=== PATIENT | female | born 1980 | race Caucasian/White ===

== ENCOUNTER 2016-04-03 16:28 | Emergency (ER) | payer SELFPAY ==
[~2016-04-03] VITALS: Ht 157.5 cm; Wt 123.4 kg
--- NOTE | 2016-04-03 20:02 | PHYS DOC ---
Past Medical History Past Medical History: Asthma, Seizure Additional Past Medical Histor: CARDIOGENIC SYNCOPE Past Surgical History: Additional Past Surgical Histo: L - EYE AND L-ELBOW Alcohol Use: None Drug Use: None Adult General Chief Complaint Chief Complaint: VAGINAL BLEEDING [facility] HPI Patient is a 35 year old female with history of asthma who presents today with vaginal bleeding. Patient states she started bleeding yesterday. She states this is 2 weeks earlier than her normal cycle. She states she had a normal cycle on February 11, 2016, then last month around the she had a 1 day episode of spotting. She states yesterday she started bleeding bright red blood with clots. She is concerned she could be having a miscarriage. She states she has history of mental issues and we should not tell her anything we should talk to the . Informed patient if she is suicidal she needs to be checked into a mental facility. Patient denies any suicide ideation right now. Patient states she has used 8 feminine pad since this morning. Review of Systems Review of Systems Constitutional: Denies fever or chills [] Eyes: Denies change in visual acuity, redness, or eye pain [] HENT: Denies nasal congestion or sore throat [] Respiratory: Denies cough or shortness of breath [] Cardiovascular: No additional information not addressed in HPI [] GI: Vaginal bleeding : Denies dysuria or hematuria [] Musculoskeletal: Denies back pain or joint pain [] Integument: Denies rash or skin lesions [] Neurologic: Denies headache, focal weakness or sensory changes [] Endocrine: Denies polyuria or polydipsia [] Current Medications Current Medications Current Medications Medications (Trade) Dose Ordered Sig/Rex Start Time Stop Time Status Last Admin Dose Admin Acetaminophen (Tylenol) 650 mg 1X ONCE 04/03/16 20:45 04/03/16 20:46 DC 04/03/16 20:45 650 MG Info (Do NOT chart on this entry -- for MONITORING) 1 each PRN DAILY PRN 04/03/16 21:45 04/05/16 21:44 Iohexol (Omnipaque 300 Mg/ml) 75 ml 1X ONCE 04/03/16 22:00 04/03/16 22:01 DC Allergies Allergies Allergies Coded Allergies Type Severity Reaction Last Updated Verified fentanyl Allergy Intermediate 03/12/16 Yes meperidine Allergy Intermediate 03/12/16 Yes morphine Allergy Intermediate 03/12/16 Yes promethazine Allergy Intermediate 03/12/16 Yes Physical Exam Physical Exam Constitutional: Well developed, well nourished, no acute distress, non-toxic appearance. [] HENT: Normocephalic, atraumatic, bilateral external ears normal, oropharynx moist, no oral exudates, nose normal. [] Eyes: PERRLA, EOMI, conjunctiva normal, no discharge. [] Neck: Normal range of motion, no tenderness, supple, no stridor. [] Cardiovascular:Heart rate regular rhythm, no murmur [] Lungs & Thorax: Bilateral breath sounds clear to auscultation [] Abdomen: Bowel sounds normal, soft, no tenderness, no masses, no pulsatile masses. [] Pelvic exam External pelvic = normal, cervix closed no CMT, no adnexal tenderness. Small amount of bright red blood noted in the vaginal vault consistent with menstrual bleeding Skin: Warm, dry, no erythema, no rash. [] Back: No tenderness, no CVA tenderness. [] Extremities: No tenderness, no cyanosis, no clubbing, ROM intact, no edema. [] Neurologic: Alert and oriented X 3, normal motor function, normal sensory function, no focal deficits noted. [] Psychologic: Affect normal, judgement normal, mood normal. [] Current Patient Data Vital Signs Vital Signs Date Time Temp Pulse Resp B/P Pulse Ox O2 Delivery O2 Flow Rate FiO2 04/03/16 21:04 74 103/56 96 Room Air 04/03/16 19:35 98.1 16 98.1 Lab Values Laboratory Tests Test 04/03/16 20:05 04/03/16 20:10 04/03/16 20:20 Urine Collection Type Unknown Urine Color Meliza Urine Clarity Cloudy Urine pH 6.0 Urine Specific [place] >=1.030 Urine Protein 30mg/dL (NEG-TRACE) Urine Glucose (UA) Negativemg/dL (NEG) Urine Ketones (Stick) 15mg/dL (NEG) Urine Blood Large (NEG) Urine Nitrite Negative (NEG) Urine Bilirubin Negative (NEG) Urine Urobilinogen Dipstick 0.2mg/dL (0.2 mg/dL) Urine Leukocyte Esterase Small (NEG) Urine RBC Tntc/HPF (0-2) Urine WBC Occ/HPF (0-4) Urine Squamous Epithelial Cells Mod/LPF Urine Bacteria Few/HPF (0-FEW) Urine Mucus Mod/LPF White Blood Count 12.0x10^3/uL (4.0-11.0) H Red Blood Count 4.23x10^6/uL (3.50-5.40) Hemoglobin 12.5g/dL (12.0-15.5) Hematocrit 38.2% (36.0-47.0) Mean Corpuscular Volume 90fL (79-100) Mean Corpuscular Hemoglobin 30pg (25-35) Mean Corpuscular Hemoglobin Concent 33g/dL (31-37) Red Cell Distribution Width 14.6% (11.5-14.5) H Platelet Count 300x10^3/uL (140-400) Neutrophils (%) (Auto) 54% (31-73) Lymphocytes (%) (Auto) 36% (24-48) Monocytes (%) (Auto) 7% (0-9) Eosinophils (%) (Auto) 2% (0-3) Basophils (%) (Auto) 1% (0-3) Neutrophils # (Auto) 6.5x10^3uL (1.8-7.7) Lymphocytes # (Auto) 4.4x10^3/uL (1.0-4.8) Monocytes # (Auto) 0.8x10^3/uL (0.0-1.1) Eosinophils # (Auto) 0.2x10^3/uL (0.0-0.7) Basophils # (Auto) 0.1x10^3/uL (0.0-0.2) Maternal Serum HCG Beta Subunit 1mIU/mL (0-6) POC Urine HCG, Qualitative Hcg negative (Negative) Laboratory Tests 04/03/16 20:10 Microbiology 04/03/16 Wet Prep - Final, Complete EKG EKG [] Radiology/Procedures Radiology/Procedures [] Course & Med Decision Making Course & Med Decision Making Pertinent Labs and Imaging studies reviewed. (See chart for details) Patient is in the ED with vaginal bleeding since yesterday, she states this is 2 weeks early and she is concerned she could be having a miscarriage. She had small amount of bleeding in the vaginal vault during pelvic exam. She is using very poor thin feminine pads which which do not collect much blood, encouraged patient to consider using larger size pad. Negative urine hCG, beta-hCG 1. Pelvic ultrasound is negative for any acute findings. WBC 12.0, hematocrit and hemoglobin are normal. Urine analysis is positive for small infection though there is a chance this urine is contaminated. I discharged her with Bactrim for 3 days. Informed patient she has dysfunctional uterine bleeding. Provided an [employer] for follow-up as soon as possible. Discharged with Ultram as needed for pain. Provided return precautions including the need to return to the ED if she starts soaking more than 1 feminine pad an hour. Her bleeding is very small in amount in the ED. Dragon Disclaimer Dragon Disclaimer This electronic medical record was generated, in whole or in part, using a voice recognition dictation system. Departure Departure Impression: Primary Impression: Dysfunctional uterine bleeding Additional Impression: Urinary tract infection Disposition: 01 HOME, SELF-CARE Condition: STABLE Referrals: NO PCP (PCP) AMRIT YOST Jr, MD Follow-up in one week Patient Instructions: Uterine Bleeding, Dysfunctional Additional Instructions: You were seen for dysfunctional uterine bleeding which can cause irregular menstrual cycles. Follow-up with the provided [employer] in the next 7 days. Ensure you complete your antibiotics for urinary tract infection. Take the prescribed medicines as needed for pain. Return to the ED if he starts soaking one LARGE feminine pad per hour. Scripts Tramadol Hcl/Acetaminophen (Ultracet Tablet)1 Each Tablet1 Tab PO Q6HRS #30 TAB Prov:BREEZY BARRAZA APRN 04/03/16 Sulfamethoxazole/Trimethoprim (Bactrim Ds Tablet)1 Each Tablet1 Tab PO BID #6 TAB Prov:BREEZY BARRAZA APRN 04/03/16 Problem Qualifiers Additional Impression: Urinary tract infection Urinary tract infection type: acute cystitis Hematuria presence: without hematuria Qualified Code: N30.00 - Acute cystitis without hematuria BREEZY BARRAZA APRN Apr 03, 2016 20:02
[2016-04-03 20:23] LABS: BILIRUBIN,URINE NEGATIVE (NEG); GLUCOSE,URINE NEGATIVE (NEG); NITRITE,URINE NEGATIVE (NEG); PROTEIN,URINE 30 mg/dL (NEG-TRACE); UROBILINOGEN,URINE 0.2 mg/dL (0.2 mg/dL)
[2016-04-03 20:23] LABS: BASO # 0.1 x10^3/uL (0.0-0.2); BASO % 1 % (0-3); EOS % 2 % (0-3); HEMATOCRIT 38.2 % (36.0-47.0); HEMOGLOBIN 12.5 g/dL (12.0-15.5); LYMPH # 4.4 x10^3/uL (1.0-4.8); LYMPH % 36 % (24-48); MEAN CORPUSCULAR HEMOGLOBIN 30 pg (25-35); MEAN CORPUSCULAR HGB CONC 33 g/dL (31-37); MEAN CORPUSCULAR VOLUME 90 fL (79-100); MONO % 7 % (0-9); NEUT % 54 % (31-73); PLATELET COUNT 300 x10^3/uL (140-400); RED BLOOD COUNT 4.23 x10^6/uL (3.50-5.40); RED CELL DISTRIBUTION WIDTH 14.6 % (11.5-14.5)
[2016-04-03 20:34] LABS: BACTERIA,URINE FEW /HPF (0-FEW); RBC,URINE TNTC /HPF (0-2); SQUAMOUS EPITHELIAL CELL,UR MOD /LPF; WBC,URINE OCC /HPF (0-4)
[2016-04-03] MEDS ORDERED: ACETAMINOPHEN 325 MG TABLET. PO ONE (20:45)
[2016-04-03] MEDS ORDERED: CONTRAST GIVEN MC PRN (21:45)
[2016-04-03] MEDS ORDERED: IOHEXOL 300 MG/ML 75 ML VIAL IV ONE (22:00)
--- NOTE | 2016-04-03 22:26 | RAD ---
PROCEDURE Pelvic ultrasound with endovaginal imaging. HISTORY Pelvic pain and vaginal bleeding for 2 days. TECHNIQUE Transabdominal imaging was performed for initial evaluation of the pelvis. Endovaginal imaging was performed for optimal characterization of the endometrium. COMPARISON None. FINDINGS Transabdominal imaging: Examination is technically difficult secondary to patient body habitus. Uterus measures 10.4 centimeters in length. Endometrium is not well seen. No gross uterine masses are identified. Left ovary measures 2.5 x 2.4 x 2.4 centimeters and is unremarkable. Right ovary measures 2.6 x 2.1 x 2.3 centimeters and is unremarkable. No gross adnexal masses are seen. Endovaginal imaging: Uterus measures 9.8 centimeters in length. Endometrial thickness is 4 millimeters, within normal limits. Small nabothian cysts are seen. Left ovary measures 1.8 x 2.0 x 2.5 centimeters and is unremarkable. Right ovary measures 3.2 x 2.4 x 2.4 centimeters and is unremarkable. Both ovaries demonstrate normal vascular flow upon Doppler interrogation and are without evidence of torsion. No masses seen. IMPRESSION Unremarkable pelvic ultrasound. Electronically signed by: Vasu Cortés MD (Apr 03, 2016 22:25:29)
[2016-04-03 22:34] VITALS: BP 116/62
[2016-04-03] MEDS ORDERED: TRAM1TAB49 PO (23:23)
[2016-04-03] MEDS ORDERED: SULF1TAB24 PO (23:23)
== END 2016-04-04 00:06 | disposition home or self-care (01) ==
LOC: ER 16:28
DX: N93.8 Other specified abnormal uterine and vaginal bleeding (principal); N30.00 Acute cystitis without hematuria; J45.909 Unspecified asthma, uncomplicated; Z88.5 Allergy status to narcotic agent; Z88.8 Allergy status to other drugs, medicaments and biological substances
CPT/HCPCS: 36415; 76830; 76856; 81001; 81025; 84702; 85027; 87491; 87591; 99285; Q0111

== ENCOUNTER 2016-12-07 19:34 | Emergency (ER) | payer SELFPAY ==
[~2016-12-07] VITALS: Ht 157.5 cm; Wt 123.4 kg
[~2016-12-07 19:34] MED LIST: SULF1TAB24 PO; TRAM1TAB56 PO
[2016-12-07] MEDS ORDERED: IPRATRPIUM/ALBUTEROL 0.5/2.5MG 3 ML NEBU. NEB ONE (20:00)
[2016-12-07] MEDS ORDERED: ASPIRIN 325 MG TABLET PO ONE (20:00)
[2016-12-07 20:12] LABS: BASO # 0.1 x10^3/uL (0.0-0.2); BASO % 1 % (0-3); EOS % 2 % (0-3); HEMATOCRIT 38.9 % (36.0-47.0); LYMPH # 2.4 x10^3/uL (1.0-4.8); LYMPH % 29 % (24-48); MEAN CORPUSCULAR HEMOGLOBIN 29 pg (25-35); MEAN CORPUSCULAR HGB CONC 34 g/dL (31-37); MEAN CORPUSCULAR VOLUME 87 fL (79-100); MONO % 7 % (0-9); NEUT % 61 % (31-73); PLATELET COUNT 316 x10^3/uL (140-400); RED CELL DISTRIBUTION WIDTH 14.2 % (11.5-14.5); WHITE BLOOD COUNT 8.4 x10^3/uL (4.0-11.0)
[2016-12-07 20:25] LABS: CALCIUM 8.7 mg/dL (8.5-10.1); GFR 62.7; POTASSIUM 3.5 mmol/L (3.5-5.1)
[2016-12-07 20:30] LABS: ALBUMIN 3.1 g/dL (3.4-5.0); ALBUMIN/GLOBULIN RATIO 0.7 (1.0-1.7); MAGNESIUM 2.3 mg/dL (1.8-2.4); TOTAL BILIRUBIN 0.2 mg/dL (0.2-1.0); TOTAL PROTEIN 7.5 g/dL (6.4-8.2)
[2016-12-07] MEDS ORDERED: IOHEXOL 300 MG/ML 75 ML VIAL IV ONE (20:30)
[2016-12-07 20:40] VITALS: BP 138/65
[2016-12-07] MEDS ORDERED: CONTRAST GIVEN MC PRN (20:45)
--- NOTE | 2016-12-07 20:59 | PHYS DOC ---
Past Medical History Past Medical History: Anxiety, Asthma, Depression, Seizure, Other Additional Past Medical Histor: CARDIOGENIC SYNCOPE; PTSD Past Surgical History: , Other Additional Past Surgical Histo: L - EYE AND L-ELBOW; mass removal around THYROID 04/2016 Alcohol Use: None Drug Use: None Adult General Chief Complaint Chief Complaint: CHEST PAIN HPI HPI Patient is a 36 year old female who presents with cough & syncope. The patient wants home or she reports that she has been experiencing left-sided chest pain since yesterday, experienced onset of cough and subsequently had syncopal episode. Unknown how long she was unconscious. She has history of seizure but does not believe she experienced seizure, no tongue biting, no headache or sleepiness, no bowel or bladder incontinence. She has history of asthma and has been having cough and wheezing. She states she could not use her inhaler because she gave to her father. She states chest pain has been constant , is nonradiating. No associated nausea or diaphoresis. Denies fevers or chills or lower extremity pain or swelling. She has been having syncopal episodes approximately every 2-3 months and has been diagnosed with neurocardiogenic syncope. She is taking metoprolol. She was actually admitted to [facility] yesterday for similar symptoms. Evaluated by Dr. Chang of cardiology who suggested she could be evaluated as an outpatient for permanent pacemaker placement. She was discharged home after negative cardiac evaluation. Review of Systems Review of Systems Constitutional: Denies fever or chills Eyes: Denies change in visual acuity HENT: Denies nasal congestion or sore throat Respiratory: Reports cough and shortness of breath Cardiovascular: Reports chest pain, denies edema GI: Denies abdominal pain, nausea, vomiting Musculoskeletal: Denies back pain or joint pain Integument: Denies rash or skin lesions Neurologic: Denies headache, focal weakness or sensory changes Current Medications Current Medications Current Medications Medications (Trade) Dose Ordered Sig/Rex Start Time Stop Time Status Last Admin Dose Admin Albuterol/ Ipratropium (Duoneb) 3 ml 1X ONCE 12/07/16 20:00 12/07/16 20:09 DC 12/07/16 21:10 3 ML Aspirin (Pancho Aspirin) 325 mg 1X ONCE 12/07/16 20:00 12/07/16 20:09 DC Info (Do NOT chart on this entry -- for MONITORING) 1 each PRN DAILY PRN 10/21/17 20:45 12/09/16 20:44 Iohexol (Omnipaque 300 Mg/ml) 75 ml 1X ONCE 12/07/16 20:30 12/07/16 20:31 DC 12/07/16 20:59 75 ML Allergies Allergies Allergies Coded Allergies Type Severity Reaction Last Updated Verified fentanyl Allergy Intermediate 03/12/16 Yes meperidine Allergy Intermediate 03/12/16 Yes morphine Allergy Intermediate 03/12/16 Yes promethazine Allergy Intermediate 03/12/16 Yes Physical Exam Physical Exam Constitutional: Obese, no acute distress, non-toxic appearance. HENT: Normocephalic, atraumatic, bilateral external ears normal, oropharynx moist, nose normal. Eyes: conjunctiva normal, no discharge. Neck: supple, no stridor. Cardiovascular: RRR, no murmurs, no edema. Lungs & Thorax: LCTAB, no wheezing, no respiratory distress. Reproducible tenderness with palpation over left anterior chest wall Abdomen: soft, nontender, nondistended. Skin: Warm, dry, no erythema, no rash. Back: No tenderness. Extremities: No tenderness, no edema. No calf tenderness or swelling, distal pulses palpable bilaterally to lower extremities Neurologic: Alert and oriented X 3, cranial nerves II through XII grossly intact , symmetric strength and sensation to upper and lower extremities, no focal deficits noted. Psychologic: Affect normal, judgement normal, mood normal. Current Patient Data Vital Signs Vital Signs Date Time Temp Pulse Resp B/P (MAP) Pulse Ox O2 Delivery O2 Flow Rate FiO2 12/07/16 21:07 97 Room Air 12/07/16 19:49 99.0 75 20 116/62 (80) 99.0 Lab Values Laboratory Tests Test 12/07/16 19:45 White Blood Count 8.4 x10^3/uL (4.0-11.0) Red Blood Count 4.50 x10^6/uL (3.50-5.40) Hemoglobin 13.0 g/dL (12.0-15.5) Hematocrit 38.9 % (36.0-47.0) Mean Corpuscular Volume 87 fL (79-100) Mean Corpuscular Hemoglobin 29 pg (25-35) Mean Corpuscular Hemoglobin Concent 34 g/dL (31-37) Red Cell Distribution Width 14.2 % (11.5-14.5) Platelet Count 316 x10^3/uL (140-400) Neutrophils (%) (Auto) 61 % (31-73) Lymphocytes (%) (Auto) 29 % (24-48) Monocytes (%) (Auto) 7 % (0-9) Eosinophils (%) (Auto) 2 % (0-3) Basophils (%) (Auto) 1 % (0-3) Neutrophils # (Auto) 5.2 x10^3uL (1.8-7.7) Lymphocytes # (Auto) 2.4 x10^3/uL (1.0-4.8) Monocytes # (Auto) 0.6 x10^3/uL (0.0-1.1) Eosinophils # (Auto) 0.2 x10^3/uL (0.0-0.7) Basophils # (Auto) 0.1 x10^3/uL (0.0-0.2) Sodium Level 140 mmol/L (136-145) Potassium Level 3.5 mmol/L (3.5-5.1) Chloride Level 102 mmol/L (98-107) Carbon Dioxide Level 29 mmol/L (21-32) Anion Gap 9 (6-14) Blood Urea Nitrogen 15 mg/dL (7-20) Creatinine 1.0 mg/dL (0.6-1.0) Estimated GFR (Cockcroft-Gault) 62.7 BUN/Creatinine Ratio 15 (6-20) Glucose Level 99 mg/dL (70-99) Calcium Level 8.7 mg/dL (8.5-10.1) Magnesium Level 2.3 mg/dL (1.8-2.4) Total Bilirubin 0.2 mg/dL (0.2-1.0) Aspartate Amino Transferase (AST) 18 U/L (15-37) Alanine Aminotransferase (ALT) 25 U/L (14-59) Alkaline Phosphatase 65 U/L (46-116) Troponin I Quantitative < 0.017 ng/mL (0.000-0.055) GL-Edc-N-Type Natriuretic Peptide 35 pg/mL (0-124) Total Protein 7.5 g/dL (6.4-8.2) Albumin 3.1 g/dL (3.4-5.0) L Albumin/Globulin Ratio 0.7 (1.0-1.7) L Laboratory Tests 12/07/16 19:45 Laboratory Tests 12/07/16 19:45 EKG EKG Interpreted by me: 2003: Normal sinus rhythm rate 79, no acute ST or T wave changes, normal intervals, no ectopy.[] Radiology/Procedures Radiology/Procedures PROCEDURE: CT ANGIOGRAPHY CHEST CTA chest with contrast Indication: chest pain; elevated d-dimer; Omni 300, 75ml . Comparison: No comparison is available. Technique: After bolus of intravenous contrast, CT imaging was performed of the chest. MIP reconstructions were obtained. Exposure: One or more of the following individualized dose reduction techniques were utilized for this examination: 1. Automated exposure control 2. Adjustment of the mA and/or kV according to patient size 3. Use of iterative reconstruction technique. Findings: Detail is limited due to artifact, produced by body habitus. Pulmonary arteries:No evidence of pulmonary embolism. Thoracic aorta: No evidence of an aneurysm or dissection. Great vessel origins:Patent Thyroid gland:Visualized aspect is unremarkable. Lymph nodes:No significant enlargement Heart: No significant pericadial effusion. Pleural spaces: No significant effusion Lungs: Small noncalcified pulmonary nodule in the anterior right lower lung measures 4 mm, image 75 on series 3. There is some mosaic attenuation in the lungs, as can be seen with small airway disease. No dense airspace consolidation identified. Trachea and central airways: Patent Bones: No destructive process Upper abdomen: Slices were obtained through the upper abdomen, but are of limited usefulness due to technique. Spleen borderline enlarged, 12.8 cm. Impression: 1. Negative for pulmonary embolism. 2. Small incidental noncalcified right pulmonary nodule, consider follow-up CT chest in 12 months if patient is at high risk, as per Fleischner Society criteria. 3. Borderline splenomegaly. Electronically signed by: Vasu Grant MD (12/07/2016 9:13 PM) [facility] DICTATED and SIGNED BY: VASU GRANT MD DATE: 12/07/16 2100[] Course & Med Decision Making Course & Med Decision Making Pertinent Labs and Imaging studies reviewed. (See chart for details) Patient presents with chest pain having experienced syncopal episode. I did review records from previous hospital admission last night at [facility]. She was given aspirin by EMS. Administered DuoNeb breathing treatment here. No significant wheezing on exam, no indication for prednisone. Obtained labs, EKG. Will obtain CT angiogram of the chest is d-dimer was elevated yesterday and I do not see that further evaluation was performed to evaluate for pulmonary embolism. Discussed with Dr. Chang who had seen the patient during that hospitalization; recommends no need for admission or further cardiac evaluation at this time. He had already recommended that she follow-up in the clinic and at that time they can discuss elective pacemaker placement if she remains symptomatic. He did reiterate that she is not to drive. CT angiogram negative for PE. Discussed results with the patient. Recommend rest, hydration, will provide refill of inhaler. Take Tylenol or ibuprofen for chest pain. Follow-up in the cardiology clinic for further evaluation. Return to the emergency department for severe chest pain or shortness of breath, focal neurologic deficit, any otherwise worsening condition. Discharged home in stable condition. Dragon Disclaimer Dragon Disclaimer This electronic medical record was generated, in whole or in part, using a voice recognition dictation system. Departure Departure Impression: Primary Impression: Syncope Disposition: 01 HOME, SELF-CARE Condition: STABLE Referrals: ASHLEY NELSON (PCP) LAKIA CHANG MD Patient Instructions: Syncope, [id number] Additional Instructions: You were seen in the emergency department today for fainting & cough. Your tests here did not show a serious cause of symptoms. Please rest, drink fluids , take tylenol or ibuprofen for pain, use inhaler for asthma symptoms. Follow up as scheduled in cardiology clinic. You are not to drive a car because of fainting. Come back for severe chest pain or shortness of breath, numbness or weakness in arms or legs, any otherwise worsening condition. Scripts Albuterol Sulfate (PROAIR HFA INHALER) 8.5 Gm Hfa.aer.ad 1 PUFF INH PRN Q6HRS Y for SHORTNESS OF BREATH, #1 INHALER 0 Refills Prov: IRENE TOMLIN MD 12/07/16 IRENE TOMLIN MD Dec 07, 2016 20:59
--- NOTE | 2016-12-07 21:17 | RAD ---
CTA chest with contrast Indication: chest pain; elevated d-dimer; Omni 300, 75ml . Comparison: No comparison is available. Technique: After bolus of intravenous contrast, CT imaging was performed of the chest. MIP reconstructions were obtained. Exposure: One or more of the following individualized dose reduction techniques were utilized for this examination: 1. Automated exposure control 2. Adjustment of the mA and/or kV according to patient size 3. Use of iterative reconstruction technique. Findings: Detail is limited due to artifact, produced by body habitus. Pulmonary arteries:No evidence of pulmonary embolism. Thoracic aorta: No evidence of an aneurysm or dissection. Great vessel origins:Patent Thyroid gland:Visualized aspect is unremarkable. Lymph nodes:No significant enlargement Heart: No significant pericadial effusion. Pleural spaces: No significant effusion Lungs: Small noncalcified pulmonary nodule in the anterior right lower lung measures 4 mm, image 75 on series 3. There is some mosaic attenuation in the lungs, as can be seen with small airway disease. No dense airspace consolidation identified. Trachea and central airways: Patent Bones: No destructive process Upper abdomen: Slices were obtained through the upper abdomen, but are of limited usefulness due to technique. Spleen borderline enlarged, 12.8 cm. Impression: 1. Negative for pulmonary embolism. 2. Small incidental noncalcified right pulmonary nodule, consider follow-up CT chest in 12 months if patient is at high risk, as per Fleischner Society criteria. 3. Borderline splenomegaly. Electronically signed by: Vasu Grant MD (12/07/2016 9:13 PM) [facility]
[2016-12-07] MEDS ORDERED: PROAIR HFA8.5 GM INH (21:28)
--- NOTE | 2016-12-08 12:10 | EKG ---
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
== END 2016-12-07 21:58 | disposition home or self-care (01) ==
LOC: ER 19:34
DX: R55 Syncope and collapse (principal); R06.02 Shortness of breath; R05 Cough; R06.2 Wheezing; R07.89 Other chest pain; J45.909 Unspecified asthma, uncomplicated; F32.9 Major depressive disorder, single episode, unspecified; F43.10 Post-traumatic stress disorder, unspecified; F41.9 Anxiety disorder, unspecified; Z88.4 Allergy status to anesthetic agent; Z88.5 Allergy status to narcotic agent; Z88.8 Allergy status to other drugs, medicaments and biological substances; Z79.899 Other long term (current) drug therapy
CPT/HCPCS: 36415; 71275; 80053; 83735; 83880; 84484; 85025; 93005; 94250; 94640; 99285; J7620; Q9967

== ENCOUNTER 2017-01-06 06:34 | Observation (INO) | payer BC ==
[~2017-01-06] VITALS: Ht 158.8 cm; Wt 132.6 kg
[2017-01-06] VITALS (13 sets, daily range): BP systolic 97–134; BP diastolic 49–69
[~2017-01-06 06:34] MED LIST changes: +PROAIR HFA8.5 GM INH
[2017-01-06] MEDS ORDERED: BUDE10.2 IH (06:56)
[2017-01-06] MEDS ORDERED: LEVE500T56 PO (06:56)
[2017-01-06] MEDS ORDERED: FLUO40CA2 PO (06:56)
[2017-01-06] MEDS ORDERED: DIVA500T2 PO (06:56)
[2017-01-06] MEDS ORDERED: BACITRACIN 50,000 UNIT in IV NORMAL SALINE 250ML 250 ML IRR ONE (07:00)
[2017-01-06 07:04] LABS: HEMATOCRIT 41.6 % (36.0-47.0); HEMOGLOBIN 13.5 g/dL (12.0-15.5); RED BLOOD COUNT 4.85 x10^6/uL (3.50-5.40); RED CELL DISTRIBUTION WIDTH 14.5 % (11.5-14.5); WHITE BLOOD COUNT 9.5 x10^3/uL (4.0-11.0)
[2017-01-06] MEDS ORDERED: IOHEXOL 300 MG/ML 100ML VIAL. ONE (07:17)
[2017-01-06] MEDS ORDERED: LIDOCAINE 2% 20 ML VIAL. ONE (07:18)
[2017-01-06] MEDS ORDERED: HEPARIN for ARTERIAL LINE 0 ML ONE (07:18)
[2017-01-06 07:19] LABS: CALCIUM 8.8 mg/dL (8.5-10.1); CREATININE 0.9 mg/dL (0.6-1.0); GFR 70.8; POTASSIUM 3.4 mmol/L (3.5-5.1)
[2017-01-06] MEDS ORDERED: LIDOCAINE 2%/EPI 1:100,000 20 ML VIAL. ONE (07:23)
[2017-01-06 07:32] LABS: PROTHROMBIN TIME PATIENT 12.5 SEC (11.7-14.0)
[2017-01-06] MEDS ORDERED: IV RINGERS,LACTATED 1000ML 1,000 ML IV SCH (07:50)
[2017-01-06] MEDS ORDERED: MIDAZOLAM HCL/PF 2 MG/2 ML VIAL. ONE ×2 (08:04→08:51)
[2017-01-06] MEDS ORDERED: PROPOFOL 60 ML IV ONE (08:04)
[2017-01-06] MEDS ORDERED: LIDOCAINE 2% PF Vial for OR 5 ML VIAL. ONE (08:04)
[2017-01-06] MEDS ORDERED: LIDOCAINE 2%/EPI 1:100,000 20 ML VIAL. IJ ONE (08:30)
--- NOTE | 2017-01-06 09:28 | PDOC ---
MODERATE SEDATION ASSESSMENT RISKS/ALTERNATIVES Risks/Alternatives Risks and alternatives of this type of sedation and procedure discussed with: RISK/ALTERNATIVES: Patient H & P ON CHART H & P H & P on chart and reviewed for co-morbid conditions and appropriate labs. H&P ON CHART: Yes STATUS PREG STATUS ASSESSED: N/A MEDS/ALLERGIES REVIEWED Meds/Allergies Reviewed Medications and Allergies including time and route of recently administered narcotics and sedatives. MEDS/ALLERGIES REVIEWED: Yes ASA RATING ASA RATING: II AIRWAY ASSESSMENT Airway Assessment Airway patency, oral function limitations, presence of caps, crowns, dentures, partials, and ability to extend neck assessed. AIRWAY ASSESSMENT: Yes MALLAMPATI SCORE MALLAMPATI SCORE: II PRE-SEDATION ASSESSMENT PRE-SEDATION ASSESSMENT: Yes LAKIA CHANG MD Jan 06, 2017 09:28
[2017-01-06] MEDS ORDERED: NO ANTICOAGULANT THERAPY. MC PRN (09:30)
--- NOTE | 2017-01-06 09:57 | CARD ---
APPROVED REPORT PROCEDURES Successful implantation of Biotronik dual-chamber permanent pacemaker INDICATIONS Recurrent syncope of neurocardiogenic etiology PROCEDURE After explaining the risks, benefits, and alternative options, informed consent was obtained from the patient. The patient was brought to the cardiac catheterization lab and the left chest and shoulder were prepp ed and draped in a sterile manner. 36 mL of 2% lidocaine was infiltrated into the skin and subcutaneous tissues for local anesthesia. An incision was made over the left infraclavicular fossa and using blunt dissection and cautery a pocke t was created. Venous access was obtained in the left subclavian vein and 8 and 6 Palestinian sheath were inserted. A Biotronik bipolar active fixation right ventricular lead model Solia, serial #[id number] was advanced under fluoroscopy guidance and the tip was positioned in the right ventricular apex. Subsequently, a Biotronik bipolar active fixation right atrial lead model Solia serial #[id number] was positioned in t he right atrial appendage the leads were secured into place and attached to a Biotronik dual-chamber permanent pacemaker generator model Eluna 8-DR-T Pro MRI, serial #[id number]. The generator was placed in the pocket was subsequently closed in 3 layers. Hemostasis was secured.. The right ventricular lead showed a sensing amplitude of 9.1 mV, impedance of 578 ohms and a threshol d of 1 V. the right atrial lead showed a sensing amplitude of 2.5 mV, impedance of 543 ohms and a thr eshold of 1.1 V. Patient tolerated the procedure well. There were no immediate complications. CONCLUSION Successful implantation of Biotronik dual-chamber permanent pacemaker for recurrent neurocardiogenic syncope.
--- NOTE | 2017-01-06 10:00 | RAD ---
Indication: Pacemaker placement. Time of exam 0951 hours. No prior studies are available for comparison. The heart is enlarged. A dual-lead left subclavian cardiac pacemaker has been placed. Leads appear to be in appropriate position. No pneumothorax is identified. The lungs are clear. Impression: Pacemaker placement. No complicating features are detected.
[2017-01-06] MEDS ORDERED: POTASSIUM CHLORIDE 20 MEQ TABLET.ER. PO ONE (10:45)
[2017-01-06] MEDS: DIVALPROEX DELAYED RELEASE 500 MG TABLET.DR. PO SCH ×2 (11:39→20:47)
[2017-01-06] MEDS: FLUoxetine HCL 20 MG CAPSULE PO SCH (11:40)
[2017-01-06] MEDS: levETIRAcetam 500 MG TABLET PO SCH ×2 (11:40→20:47)
[2017-01-06] MEDS ORDERED: ACETAMINOPHEN 325 MG TABLET. PO PRN (12:00)
[2017-01-06] MEDS ORDERED: ONDANSETRON PF 4 MG/2 ML VIAL. IV PRN (12:00)
--- NOTE | 2017-01-06 12:05 | EKG ---
[facility] [address] [place] [address] Test Date: 2017-01-06 Test Time: 12:00:57 Pat Name: ROBIN VARGAS Department: Room: 260 1 Gender: F Insole Rasper: AT : 1980 Requested By: LAKIA CHANG Order Number: [id number] Reading MD: Son Alex MD Measurements Intervals [place] Rate: 87 P: 59 [place]: 202 QRS: 16 QRSD: 82 T: 17 QT: 362 QTc: 436 Interpretive Statements POSSIBLE A-PACED RHYTHM NON-SPECIFIC ST/T CHANGES Electronically Signed On 01-14-2017 13:27:09 MOLECULAR BIOLOGY SCIENTIST by Son Alex MD
[2017-01-06] MEDS ORDERED: NON FORMULARY ITEM (Albuterol Sulfate (Proair Hfa Inhaler) 1 PUFF) INH PRN (12:45)
[2017-01-06] MEDS ORDERED: PROAIR HFA8.5 GM INH (12:45)
[2017-01-06] MEDS ORDERED: ALBUTEROL SULFATE 2.5 MG/3 ML NEBU. NEB PRN (13:00)
[2017-01-06] MEDS: ALBUTEROL SULFATE 2.5 MG/3 ML NEBU. NEB SCH ×2 (16:01→19:48)
[2017-01-06] MEDS ORDERED: HYDROcodone/APAP 5/325MG 1 TAB TABLET PO PRN (19:00)
[2017-01-06] MEDS: BUDESONIDE 0.5 MG/2 ML NEBU. NEB SCH (19:48)
[2017-01-06] MEDS: HYDROcodone/APAP 5/325MG 1 TAB TABLET PO PRN (19:58)
[2017-01-06] MEDS ORDERED: NON FORMULARY ITEM (Budesonide/Formoterol Fumarate (Symbicort 160-4.5 Mcg Inhaler) 1 PUFF) IH SCH (21:00)
[2017-01-07] VITALS (12 sets, daily range): BP systolic 95–132; BP diastolic 48–77
[2017-01-07] MEDS: HYDROcodone/APAP 5/325MG 1 TAB TABLET PO PRN ×4 (00:57→21:12)
[2017-01-07] MEDS: BUDESONIDE 0.5 MG/2 ML NEBU. NEB SCH ×2 (07:22→19:29)
[2017-01-07] MEDS: ALBUTEROL SULFATE 2.5 MG/3 ML NEBU. NEB SCH ×4 (08:00→19:29)
[2017-01-07] MEDS: levETIRAcetam 500 MG TABLET PO SCH ×2 (08:47→21:05)
[2017-01-07] MEDS: FLUoxetine HCL 20 MG CAPSULE PO SCH (08:47)
[2017-01-07] MEDS: DIVALPROEX DELAYED RELEASE 500 MG TABLET.DR. PO SCH ×2 (08:47→21:05)
--- NOTE | 2017-01-07 09:04 | RAD ---
EXAM: Chest 2 views. HISTORY: Pacemaker placement. COMPARISON: 01/06/2017. FINDINGS: Frontal and lateral views of the chest are obtained. A left-sided pacemaker has its leads in the right atrium and right ventricle. The right atrial lead appears differently positioned than on the prior study. There are no confluent infiltrates. There is no pneumothorax or pleural effusion. The heart is not enlarged. IMPRESSION: 1. The right atrial lead is differently positioned than on the prior study.
--- NOTE | 2017-01-07 11:39 | PDOC ---
Provider Note Provider Note 01/07/2017 Pt is doing well. Incision site is intact and no erythema. Neurovascular status to LUE intact. No complications. Per repeat interrogation RV lead readings is not optimal indicating needing repositioning. Discussed with pt and agreeable to proceed. RAAD JORGE APRN Jan 07, 2017 11:39
[2017-01-07] MEDS ORDERED: LIDOCAINE 2%/EPI 1:100,000 20 ML VIAL. ONE (11:58)
[2017-01-07] MEDS ORDERED: BACITRACIN 50,000 UNIT in IV NORMAL SALINE 250ML 250 ML IRR ONE (13:30)
[2017-01-07] MEDS ORDERED: ceFAZolin SODIUM 3 GM in IV DEXTROSE 5% 100 ML IV ONE (13:30)
[2017-01-07] MEDS ORDERED: MIDAZOLAM HCL/PF 5 MG/5 ML VIAL. ONE (13:33)
[2017-01-07] MEDS ORDERED: diphenhydrAMINE 50 MG/ML VIAL ONE ×2 (13:33→14:04)
[2017-01-07] MEDS ORDERED: LIDOCAINE 2%/EPI 1:100,000 20 ML VIAL. IJ ONE (14:30)
[2017-01-07] MEDS ORDERED: diphenhydrAMINE 50 MG/ML VIAL IVP ONE (14:30)
[2017-01-07] MEDS ORDERED: MIDAZOLAM HCL/PF 5 MG/5 ML VIAL. IV ONE (14:30)
--- NOTE | 2017-01-07 15:03 | CARD ---
APPROVED REPORT Procedure(s) performed: Successful Biotronik dual-chamber permanent pacemaker right ventricular lead revision 45 moderate sedation INDICATION The indication(s) include : Neurocardiogenic syncope s/p permanent pacemaker implantation with pacema ker malfunction secondary to right ventricular lead dislodgment. PROCEDURE NARRATIVE After explaining the risks, benefits and alternative options, informed consent was obtained from elida ent. Patient was brought to the cardiac Pony Ride Operator and her left chest and shoulder were prepped and renard ped in the usual fashion. 30 mL of 2% lidocaine was infiltrated into the skin and subcutaneous tissue s for local anesthesia. An incision was made over the previous scar and using blunt dissection the po cket was opened, the previous replaced generator removed from the pocket. The right ventricular lead was detached from the generator, repositioned on the septum under fluoroscopy guidance and reattached to the generator. This was placed in the pocket that was subsequently closed in 3 layers. The right ventricular lead showed significantly improved sensitivity of 10.4 mV, impedance of 526 ohms and a th reshold of 0.8 V. Patient tolerated the procedure well. There were no immediate competitions. Conclusion Successful Biotronik permanent pacemaker right ventricular lead revision for lead dislodgment.
[2017-01-08 03:00] VITALS: BP 119/76
[2017-01-08 07:00] VITALS: BP 115/59
[2017-01-08] MEDS: ALBUTEROL SULFATE 2.5 MG/3 ML NEBU. NEB SCH ×2 (07:17→11:43)
[2017-01-08] MEDS: FLUoxetine HCL 20 MG CAPSULE PO SCH (08:25)
[2017-01-08] MEDS: DIVALPROEX DELAYED RELEASE 500 MG TABLET.DR. PO SCH (08:25)
[2017-01-08] MEDS: levETIRAcetam 500 MG TABLET PO SCH (08:25)
[2017-01-08] MEDS: HYDROcodone/APAP 5/325MG 1 TAB TABLET PO PRN (08:25)
--- NOTE | 2017-01-08 08:28 | RAD ---
2 views of the Chest 01/08/2017 7:00 AM Indication: post pacemaker placement Comparison: Chest radiograph, yesterday Findings: Dual-lead pacemaking device from a left subclavian approach is again seen. The generator device ventricular lead appear different in position. There is no focal consolidation or infiltrate identified. There is no effusion or pneumothorax. The cardiomediastinal silhouette and pulmonary vasculature are within normal limits. No osseous abnormality is identified. Impression: 1. Change in position of pacemaker generator and ventricular lead. 2. No other evidence of acute cardiopulmonary process.
--- NOTE | 2017-01-08 10:35 | PDOC3 ---
RAAD JORGE MISSILE FACILITIES REPAIRER 01/08/17 1035: Discharge Summary Visit Information Date of Admission: Jan 06, 2017 Date of Discharge: Jan 08, 2017 Admitting Diagnosis: neurocardiogenic syncope Final Diagnosis neurocardiogenic syncope, S/P PPM, lead dislodgement and repositioning Brief Hospital Course Allergies Allergies Coded Allergies Type Severity Reaction Last Updated Verified fentanyl Allergy Intermediate 03/12/16 Yes meperidine Allergy Intermediate 03/12/16 Yes morphine Allergy Intermediate 03/12/16 Yes onion Allergy Intermediate 01/06/17 Yes promethazine Allergy Intermediate 03/12/16 Yes Vital Signs Vital Signs Date Time Temp Pulse Resp B/P (MAP) Pulse Ox O2 Delivery O2 Flow Rate FiO2 01/08/17 09:32 16 Room Air 01/08/17 07:18 98 01/08/17 07:00 98.0 92 115/59 (77) 98.0 01/07/17 14:43 4.0 Brief Hospital Course Ms. Dennis is a 36 yo female admitted for planned pacemaker placement due to multiple syncopal episodes. This is noted to be neurocardiogenic and requiring a PPM. Dual chamber pacemaker placement (Biotronik) was done on 01/06/2017. On 01/07/2017 with repeat device interrogation, it has been noted that her device readings was not satisfactory compatible with lead dislodgement requiring repositioning of RV lead. Otherwise pt tolerated procedure well and no complications. Pt is ambulatory with VSS and incisional discomfort is controlled. No CP, SOA. Her left chest incision is intact with no erythema, neurovascular status to LUE intact with immobilizer. Repeat interrogation of device today revealed normal functioning device. Discussed post pacemaker instructions including mobility and restrictions to left arm and to be reinforced by staff. Pt is to continue her home meds and to follow up in our office in 2 weeks for a wound check. Discharge Information Condition at Discharge: Stable Follow Up: Weeks (2) Disposition/Orders: D/C to Home Scheduled Budesonide/Formoterol Fumarate (Symbicort 160-4.5 Mcg Inhaler), 1 PUFF IH BID, ( Reported) Divalproex Sodium (Depakote), 500 MG PO BID, (Reported) Fluoxetine Hcl (Fluoxetine Hcl), 40 MG PO DAILY, (Reported) Levetiracetam (Keppra), 500 MG PO BID, (Reported) Scheduled PRN Albuterol Sulfate (Proair Hfa Inhaler), 1 PUFF INH PRN Q6HRS PRN for SHORTNESS OF BREATH, (Reported) Patient Instructions Patient Instructions Must know & what to expect after device implant: 1. Your surgical dressing should be removed prior to discharge from the hospital, but allow the steri- strips to fall off naturally. 2. Activity restrictions: DO NOT raise arm above shoulder level, lift anything heavier than a gallon of milk, and no push or pull motions such as vacuuming/lawn mowing, no swinging motions (golf), etc for 4 weeks. 3. It is OK to use a cell phone or other electronic devices just be sure you do not store it in a breast pocket on the side where the device was placed. 4. Device will be interrogated prior to your discharge from the hospital and then every 3 months for defibrillators and every 6 months for pacemakers. You may be asked to have your device checked remotely from home as well, but this will depend on your particular physicians preference. 5. You may remove the arm immobilizer the day after device placement. Wear the arm immobilizer/splint at night (during sleep times) for 2 week to prevent unintended arm movement that can cause lead dislodgement. 6. Do not drive for one week as the task of driving may lead to unintended arm motion that may cause lead dislodgement. The seatbelt will also rub against the incision site & cause irritation. 7. It is our recommendation that you utilize Tylenol at home for pain control. You need to call our office if you are having uncontrollable pain at the incision site. 8. Keep your incision clean and dry. It is OK to shower. DO NOT submerge in bath, pool, or hot tub, until cleared by your doctor, as this could lead to increase risk of infection.. It is OK to use regular soap just do not scrub the incision site. Water spray from shower should not directly hit the incision. Be sure to blot dry not rub. 9. Inspect your incision daily. If you notice any increased redness, swelling , or drainage, or if you start running a fever, call the office immediately. The number is [phone]. 10. For women, if you need to protect against irritation from the bra straps, you can place a piece of gauze over the incision site for cushion. Please be sure to tape it loosely to allow air to the site & remove the gauze when you remove the bra. 11. Be sure to carry your device identification information card in your wallet/purse at all times. 12. It is OK to go through security at the airport with your device, but be sure to let the TSA know prior to proceeding as the security settings change depending on varying factors. Please do whatever is requested by security at that time. 13. Some of the newer devices may be MRI compatible but, currently, the use of these devices is not widespread, so you likely will not be able to have an MRI. Please clarify this with your physician. If at any time, you feel lightheaded or dizzy/faint, stop what you are doing & lie down immediately. If you are driving, get to the side of the road quickly, turn your car off & call 911 on your cell phone. DO NOT continue to drive as this may cause an accident that seriously injures yourself &/or others. Call the office at [phone] for any questions or concerns. LAKIA CHANG MD 01/08/17 1220: Discharge Summary Brief Hospital Course Brief Hospital Course Patient seen and examined. Agree with CADD OPERATOR's assessment and plan. Neurocardiogenic syncope s/p permanent pacemaker implantation with right ventricular lead revision yesterday Pacemaker interrogated today and found to be functioning well. Incision site looks good. Discharge home today and follow-up as previously scheduled. Discharge Information Scheduled Budesonide/Formoterol Fumarate (Symbicort 160-4.5 Mcg Inhaler), 1 PUFF IH BID, ( Reported) Divalproex Sodium (Depakote), 500 MG PO BID, (Reported) Fluoxetine Hcl (Fluoxetine Hcl), 40 MG PO DAILY, (Reported) Levetiracetam (Keppra), 500 MG PO BID, (Reported) Scheduled PRN Albuterol Sulfate (Proair Hfa Inhaler), 1 PUFF INH PRN Q6HRS PRN for SHORTNESS OF BREATH, (Reported) RAAD JORGE APRN Jan 08, 2017 10:35 LAKIA CHANG MD Jan 08, 2017 12:20
== END 2017-01-08 12:30 | disposition home or self-care (01) ==
LOC: CCL 06:34 → 2 SOUTH 08:15
PROVIDERS: ADMIT Internal Medicine Cardiovascular Disease; ATTEND Internal Medicine Cardiovascular Disease
DX: R55 Syncope and collapse (principal)
CPT/HCPCS: 33217; 33222; 36415; 71010; 71020; 80048; 85027; 85610; 93005; 94250; 94640; 94760; 96365; 96366; 96375; C1785; C1898; G0378; G0379; J0690; J1200; J2250; J2405; J2704; J3490; J7050; J7613; J7626; 99152; 99153; J2001; J7030

== ENCOUNTER 2017-01-27 07:39 | Day surgery (SDC) | payer BC ==
[~2017-01-27 07:39] MED LIST changes: +BUDE10.2 IH; +DIVA500T2 PO; +FLUO40CA2 PO; +HYDROmorphone 2 MG/ML VIAL IV PRN; +IV RINGERS,LACTATED 1000ML 1,000 ML IV SCH; +LEVE500T56 PO; +LIDOCAINE 1% PF 2 ML VIAL. ID PRN; +MORPHINE SULFATE 2 MG/ML DISP.SYRIN. IV PRN; +ONDANSETRON PF 4 MG/2 ML VIAL. IV PRN; +PROCHLORPERAZINE 10 MG/2 ML VIAL. IV PRN; +fentaNYL PF VIAL 100 MCG/2 ML VIAL IV PRN
[2017-01-27] MEDS ORDERED: ceFAZolin 2GM PREMIX 2 GM/50 ML BAG IV ONE (08:00)
--- NOTE | 2017-01-27 08:19 | DISCH ---
DISCHARGE INSTRUCTIONS Condition on Discharge Condition on Discharge: Stable Activity After Discharge Activity Instructions for Disc: Other, see below Other activity instructions: wiggle fingers Bathing Instructions: Shower-keep dressing dry Lifting Instructions after Dis: No heavy lifting, No pulling or pushing Weight Bearing Status after Di: As tolerated Diet after Discharge Diet after Discharge: Regular Wound Incision Care Wound/Incision Care: Ice to area for comfort, Keep wound/cast CDI, Keep wound elevated, Change dressing Other wound/incision instructi: change dressing in [address] after DC Call your doctor for: Concerns you may have Follow-Up Follow up with: Scottie in 2wks Treatment/Equipment after DC Adaptive Equipment Issued: None JEN CAST II, MD Jan 27, 2017 08:19
[2017-01-27 08:43] LABS: NEG OBC UR NEG; POS OBC UR POS
[2017-01-27] MEDS ORDERED: ONDANSETRON PF 4 MG/2 ML VIAL. ONE (09:13)
[2017-01-27] MEDS ORDERED: PROPOFOL 20 ML IV ONE (09:13)
[2017-01-27] MEDS ORDERED: DEXAMETHASONE SOD PHOS 20 MG/5 ML VIAL. ONE (09:13)
[2017-01-27] MEDS ORDERED: FAMOTIDINE 20 MG/2 ML VIAL ONE (09:13)
[2017-01-27] MEDS ORDERED: LIDOCAINE 2% PF Vial for OR 5 ML VIAL. ONE (09:13)
[2017-01-27] MEDS ORDERED: fentaNYL PF VIAL 100 MCG/2 ML VIAL ONE (09:14)
[2017-01-27] MEDS ORDERED: ROCURONIUM 50 MG/5 ML VIAL. ONE (09:14)
[2017-01-27] MEDS ORDERED: MIDAZOLAM HCL/PF 2 MG/2 ML VIAL. ONE (09:14)
--- NOTE | 2017-01-27 09:14 | PDOC4 ---
Operative Note Operative Note Date of surgery: 01/27/2017 Surgeon: Pedro Cast Preoperative diagnosis: #1 left fourth digit trigger finger #2 cyst of flexor tendon left fourth digit Postoperative diagnosis: Same Procedure performed #1 open left fourth digit trigger finger release #2 open left fourth digit cyst excision Anesthesia: Gen. Blood loss: 5 mL Findings: Apparent ganglion cyst arising from the flexor tendon sheath at the A1 donato Tourniquet time: 15 minutes Complications: None Specimens: Cyst was sent to pathology Reason for procedure: Patient is a 36-year-old female who had good initial relief after a corticosteroid injection to her trigger finger, but still had return of symptoms and therefore we had a discussion of the risks, benefits, and alternatives to above surgery. She had a small palpable nodule that caused her pain with tight nike athlete and was interfering with certain aspects of her work and we discussed excising this as well. Description of procedure: Patient was greeted in the preoperative area by myself for the correct extremity was marked and verified. She was taken back to the operative suite and her antibiotics were started En Route. Once in the operating room, she was transferred gently supine to the or table and secured to bed with all pressure points padded. She underwent successful induction of a general anesthetic. We then applied a nonsterile tourniquet to her left upper extremity. We then proceeded to prep and drape left upper extremity in her usual sterile fashion and conducted our standard preoperative timeout. I then exsanguinated the extremity with an Esmarch and insufflated tourniquet to 250 mmHg. After this, I made a transverse incision volarly adjacent to her fourth metacarpal head and dissected subcutaneous tissue with tenotomies. I then identified the A1 donato and release this, an finance assistant held retraction at the distal portion of the incision with a Ragnell. I then dissected and identified the cyst taking care not to disrupt the digital nerve and tracked the cyst to the flexor tendon sheath. I then excised the cyst that is stalk and sent off for specimen. I then cauterized the stalk with bipolar cautery. After this, I repositioned my retractors and released the A1 donato. Using a mosquito the flexor tendons were delivered from the operative field and there was no sign of catching. I then irrigated out the incision then closed skin with 3-0 nylon in mattress fashion. Hemostasis was achieved with bipolar cautery. I then injected 4 mL of a local anesthetic mixture into the. Incisional area. The hand was cleansed and dried and a sterile dressing was applied followed by a soft bulky dressing. Prior to accomplishing wound closure all counts correct 2. No complications. Surgery was well tolerated. At the conclusion of the surgery the tourniquet was let down and the patient was awakened from anesthesia and then transferred gently supine to the recovery room cart. She was taken to the PACU in a stable and extubated condition. Postoperative plan is to encourage active range of motion of her fingers. Wound care instructions and activity were discussed with her and her family member. We'll see her back in 2 weeks, sooner should a problem arise. PEDRO CAST II, MD Jan 27, 2017 09:14
[2017-01-27] MEDS ORDERED: LIDOCAINE 1% 20 ML VIAL. ONE (09:16)
[2017-01-27] MEDS ORDERED: BUPIVACAINE MPF 0.5% 30 ML VIAL. ONE (09:16)
[2017-01-27] MEDS ORDERED: ESMOLOL 100 MG/10 ML VIAL. IV ONE (09:41)
[2017-01-27] MEDS ORDERED: SEVOFLURANE 31 TO 60 MINUTES. IH ONE (09:56)
[2017-01-27] MEDS ORDERED: HYDR-971 PO (10:39)
[2017-01-27] MEDS ORDERED: DOCU-109 PO (10:41)
[2017-01-27] MEDS ORDERED: ONDA4TAB10 SL (10:42)
[2017-01-27] MEDS ORDERED: HYDROcodone/APAP 5/325MG 1 TAB TABLET PO ONE (11:15)
[2017-01-27 11:40] VITALS: BP 130/71
--- NOTE | 2017-01-28 14:38 | PATHOLOGY ---
PATHOLOGY REPORT * * * * * * * * FINAL DIAGNOSIS: Fibroadipose tissue, left finger: - Ganglion cyst. COMMENT: There is no evidence of malignancy. (JPM:db; 01/28/2017) REPORT ELECTRONICALLY SIGNED BY: Mckay Mark M.D. DATE/TIME: 01/28/2017 14:37 * * * * * * * * GROSS PATHOLOGY: Received in formalin labeled "Laura Dennis, cyst left finger" and consists of a 0.6 x 0.4 x 0.3 cm glistening arevalo tissue nodule. The specimen is totally submitted as A1. (LEENA; 01/27/2017) INITIAL CPT CODE(S): A; 23623 Professional services performed by [facility] [address] Technical services performed by [facility] at [address] [place] [address]. SPECIMEN(S) RECEIVED: A.Cyst left finger CLINICAL HISTORY: Trigger finger PATIENT: LAURA DENNIS /AGE: 4 1980 (Age: 36) PATIENT #: [id number] ALT CASE #: SPECIMEN COLLECTION DATE: 01/27/2017 SPECIMEN RECEIVED DATE: 01/27/2017 [facility] - [address] [place] [address] - PHONE: [phone] * * * END OF REPORT * * *
== END 2017-01-27 12:00 | disposition home or self-care (01) ==
LOC: SURG 07:39
PROVIDERS: ATTEND Orthopaedic Surgery Sports Medicine
DX: M65.342 Trigger finger, left ring finger (principal); M67.442 Ganglion, left hand; Z87.440 Personal history of urinary (tract) infections; J45.909 Unspecified asthma, uncomplicated; Z88.5 Allergy status to narcotic agent; Z88.4 Allergy status to anesthetic agent; Z88.8 Allergy status to other drugs, medicaments and biological substances; F41.9 Anxiety disorder, unspecified; F32.9 Major depressive disorder, single episode, unspecified; F43.10 Post-traumatic stress disorder, unspecified; Z79.899 Other long term (current) drug therapy
CPT/HCPCS: 26055; 81025; J0690; J1100; J2250; J2405; J2704; J3010; J3490; S0028; J2001

== ENCOUNTER 2017-02-26 04:48 | Inpatient (IN) | payer BC ==
[2017-02-26] MEDS ORDERED: ONDANSETRON PF 4 MG/2 ML VIAL. IV ×2 (05:00→07:45)
[2017-02-26] MEDS ORDERED: HYDROmorphone 2 MG/ML VIAL IV (05:30)
[2017-02-26 05:36] LABS: ADD MAN DIFF? NO
[2017-02-26 05:41] LABS: BASO # 0.1 x10^3/uL (0.0-0.2); BASO % 1 % (0-3); EOS # 0.2 x10^3/uL (0.0-0.7); EOS % 2 % (0-3); HEMATOCRIT 37.7 % (36.0-47.0); HEMOGLOBIN 12.7 g/dL (12.0-15.5); LYMPH # 2.9 x10^3/uL (1.0-4.8); LYMPH % 27 % (24-48); MEAN CORPUSCULAR HEMOGLOBIN 29 pg (25-35); MEAN CORPUSCULAR HGB CONC 34 g/dL (31-37); MEAN CORPUSCULAR VOLUME 86 fL (79-100); MONO # 0.7 x10^3/uL (0.0-1.1); MONO % 7 % (0-9); NEUT # 6.8 x10^3uL (1.8-7.7); NEUT % 64 % (31-73); PLATELET COUNT 292 x10^3/uL (140-400); RED BLOOD COUNT 4.39 x10^6/uL (3.50-5.40); RED CELL DISTRIBUTION WIDTH 14.5 % (11.5-14.5); WHITE BLOOD COUNT 10.6 x10^3/uL (4.0-11.0)
[2017-02-26 05:52] LABS: ANION GAP 14 (6-14); BLOOD UREA NITROGEN 12 mg/dL (7-20); BUN/CREATININE RATIO 12 (6-20); CALCIUM 8.7 mg/dL (8.5-10.1); CARBON DIOXIDE 25 mmol/L (21-32); CHLORIDE 102 mmol/L (98-107); GFR 62.7; GLUCOSE 113 mg/dL (70-99); POTASSIUM 3.4 mmol/L (3.5-5.1); SODIUM 141 mmol/L (136-145)
[2017-02-26 05:54] LABS: PARTIAL THROMBOPLASTIN TIME 23 SEC (24-38); PROTHROMBIN TIME PATIENT 12.8 SEC (11.7-14.0)
[2017-02-26 05:58] LABS: ALBUMIN 3.4 g/dL (3.4-5.0); ALBUMIN/GLOBULIN RATIO 0.9 (1.0-1.7); ALK PHOS 62 U/L (46-116); ALT (SGPT) 26 U/L (14-59); AST (SGOT) 16 U/L (15-37); TOTAL BILIRUBIN 0.2 mg/dL (0.2-1.0); TOTAL PROTEIN 7.4 g/dL (6.4-8.2)
[2017-02-26 06:03] LABS: TROPONINI < 0.017 ng/mL (0.000-0.055)
[2017-02-26 06:08] LABS: NT-PRO BNP 38 pg/mL (0-124)
[2017-02-26] MEDS ORDERED: DOCUSATE SODIUM 100 MG CAPSULE. PO (07:45)
[2017-02-26] MEDS ORDERED: ACETAMINOPHEN 500 MG TABLET PO (07:45)
[2017-02-26] MEDS ORDERED: IBUPROFEN 400 MG TABLET. PO (07:45)
[2017-02-26] MEDS ORDERED: ONDANSETRON ODT 4 MG TAB.RAPDIS. PO (07:45)
[2017-02-26] MEDS ORDERED: HYDROcodone/APAP 5/325MG 1 TAB TABLET PO ×2 (07:45→08:00)
[2017-02-26] MEDS ORDERED: ALBUTEROL SULFATE 2.5 MG/3 ML NEBU. NEB (08:00)
[2017-02-26] MEDS: DIVALPROEX DELAYED RELEASE 500 MG TABLET.DR. PO (10:46)
[2017-02-26] MEDS: levETIRAcetam 500 MG TABLET PO (10:46)
[2017-02-26] MEDS: FLUoxetine HCL 20 MG CAPSULE PO (10:46)
[2017-02-26] MEDS: POTASSIUM CHLORIDE 20 MEQ TABLET.ER. PO (10:47)
[2017-02-26] MEDS: ALBUTEROL SULFATE 2.5 MG/3 ML NEBU. NEB ×2 (11:17→15:33)
[2017-02-26 11:18] LABS: TROPONINI < 0.017 ng/mL (0.000-0.055)
[2017-02-26] MEDS: BUDESONIDE 0.5 MG/2 ML NEBU. NEB (11:18)
== END 2017-02-26 18:07 | disposition home or self-care (01) | DRG 206 ==
LOC: ER 04:48 → ED HOLD 05:13 → 2 NORTH 05:57
DX: M94.0 Chondrocostal junction syndrome [Tietze] (principal); Z68.43 Body mass index [BMI] 50.0-59.9, adult; M79.1 Myalgia; E66.9 Obesity, unspecified; E87.6 Hypokalemia; F32.9 Major depressive disorder, single episode, unspecified; F41.9 Anxiety disorder, unspecified; F43.10 Post-traumatic stress disorder, unspecified; G40.909 Epilepsy, unspecified, not intractable, without status epilepticus; J45.909 Unspecified asthma, uncomplicated; Z79.51 Long term (current) use of inhaled steroids; Z79.899 Other long term (current) drug therapy; Z88.5 Allergy status to narcotic agent; Z95.0 Presence of cardiac pacemaker
CPT/HCPCS: 36415; 71045; 80053; 83735; 83880; 84484; 85025; 85610; 85730; 93005; 94640; 94760; 99285; 99285-25; J7613; J7626

== ENCOUNTER 2017-04-12 19:58 | Emergency (ER) | payer BC ==
[2017-04-12] MEDS: predniSONE 10 MG TABLET PO ×2 (20:18)
[2017-04-12] MEDS: IPRATRPIUM/ALBUTEROL 0.5/2.5MG 3 ML NEBU. NEB ×2 (20:22)
== END 2017-04-12 20:53 | disposition home or self-care (01) ==
LOC: ER 19:58
DX: J20.9 Acute bronchitis, unspecified (principal); I10 Essential (primary) hypertension; F43.10 Post-traumatic stress disorder, unspecified; J45.909 Unspecified asthma, uncomplicated; Z95.0 Presence of cardiac pacemaker; Z88.4 Allergy status to anesthetic agent; Z88.8 Allergy status to other drugs, medicaments and biological substances; Z88.5 Allergy status to narcotic agent; Z91.018 Allergy to other foods
CPT/HCPCS: 71046; 94640; 99284-25; J7512; J7620

== ENCOUNTER 2017-04-21 05:18 | Emergency (ER) | payer BC ==
[2017-04-21 05:43] LABS: ADD MAN DIFF? NO
[2017-04-21] MEDS: IV NORMAL SALINE 1000ML BAG 1,000 ML IV (05:50)
[2017-04-21 05:54] LABS: ANION GAP 14 (6-14); BLOOD UREA NITROGEN 14 mg/dL (7-20); BUN/CREATININE RATIO 14 (6-20); CALCIUM 8.1 mg/dL (8.5-10.1); CARBON DIOXIDE 25 mmol/L (21-32); CHLORIDE 101 mmol/L (98-107); GFR 62.7; GLUCOSE 150 mg/dL (70-99); POTASSIUM 3.5 mmol/L (3.5-5.1); SODIUM 140 mmol/L (136-145)
[2017-04-21 05:56] LABS: BASO # 0.1 x10^3/uL (0.0-0.2); BASO % 1 % (0-3); EOS # 0.1 x10^3/uL (0.0-0.7); EOS % 1 % (0-3); HEMATOCRIT 38.3 % (36.0-47.0); HEMOGLOBIN 12.8 g/dL (12.0-15.5); LYMPH # 4.3 x10^3/uL (1.0-4.8); LYMPH % 46 % (24-48); MEAN CORPUSCULAR HEMOGLOBIN 29 pg (25-35); MEAN CORPUSCULAR HGB CONC 33 g/dL (31-37); MEAN CORPUSCULAR VOLUME 85 fL (79-100); MONO # 0.6 x10^3/uL (0.0-1.1); MONO % 7 % (0-9); NEUT # 4.3 x10^3uL (1.8-7.7); NEUT % 46 % (31-73); PLATELET COUNT 339 x10^3/uL (140-400); RED BLOOD COUNT 4.49 x10^6/uL (3.50-5.40); RED CELL DISTRIBUTION WIDTH 14.4 % (11.5-14.5); WHITE BLOOD COUNT 9.5 x10^3/uL (4.0-11.0)
[2017-04-21 06:04] LABS: TROPONINI < 0.017 ng/mL (0.000-0.055)
[2017-04-21 06:05] LABS: ALBUMIN 3.2 g/dL (3.4-5.0); ALBUMIN/GLOBULIN RATIO 0.9 (1.0-1.7); ALK PHOS 63 U/L (46-116); ALT (SGPT) 30 U/L (14-59); AST (SGOT) 15 U/L (15-37); TOTAL BILIRUBIN 0.1 mg/dL (0.2-1.0); TOTAL PROTEIN 6.9 g/dL (6.4-8.2)
[2017-04-21 06:18] LABS: D-DIMER 0.45 ug/mlFEU (0.00-0.50)
== END 2017-04-21 06:46 | disposition home or self-care (01) ==
LOC: ER 05:18
DX: R09.1 Pleurisy (principal); R07.89 Other chest pain; J45.909 Unspecified asthma, uncomplicated; I10 Essential (primary) hypertension; F43.10 Post-traumatic stress disorder, unspecified; E66.01 Morbid (severe) obesity due to excess calories; Z95.0 Presence of cardiac pacemaker; Z68.43 Body mass index [BMI] 50.0-59.9, adult; Z88.4 Allergy status to anesthetic agent; Z88.5 Allergy status to narcotic agent; Z88.8 Allergy status to other drugs, medicaments and biological substances; Z91.018 Allergy to other foods
CPT/HCPCS: 36415; 71045; 80053; 84484; 85025; 85379; 93005; 96360; 99285-25; J7030

== ENCOUNTER 2017-12-19 20:08 | Emergency (ER) | payer SELFPAY ==
[~2017-12-19] VITALS: Ht 157.5 cm; Wt 124.7 kg
[~2017-12-19 20:08] MED LIST changes: +BENZ200C47 PO; +DOCU-109 PO; +DOXY100T9 PO; +GUAI118L20 PO; +HYDR-971 PO; -HYDROmorphone 2 MG/ML VIAL IV PRN; -IV RINGERS,LACTATED 1000ML 1,000 ML IV SCH; -LIDOCAINE 1% PF 2 ML VIAL. ID PRN; -MORPHINE SULFATE 2 MG/ML DISP.SYRIN. IV PRN; +ONDA4TAB10 SL; -ONDANSETRON PF 4 MG/2 ML VIAL. IV PRN; +PRED20TA PO; -PROCHLORPERAZINE 10 MG/2 ML VIAL. IV PRN; -fentaNYL PF VIAL 100 MCG/2 ML VIAL IV PRN
[2017-12-19] MEDS ORDERED: LIDO:MAALOX 1:1 20 ML SINGLE DOSE. PO ONE (20:30)
--- NOTE | 2017-12-19 21:04 | PHYS DOC ---
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 Patient reports she called her plate and weld inspector Dr. Casey and was told to come to ER for eval. Pt reports she was seen at [facility]. last night and dx'd with pleurisy. Pt reports she has same CP/SOA as when she was seen last night with no acute changes. Pt denies N/V, fever, or prod. cough. She reports she hasn't eaten since this morning denying any N/V- reports she just hasn't felt like eating. She reports she has been drinking water today denying any difficulty swallowing, abd pain, or other sxs. Pt reports she had pacemaker placed approx. 1 yr ago d/t neurocardiogenic syncope. Review of Systems Review of Systems Constitutional: Denies fever or chills. Denies fatigue/weakness Eyes: Denies change in visual acuity, redness, or eye pain [] HENT: Denies nasal congestion or sore throat/swelling or difficulty swallowing Respiratory: Reports shortness of breath. Denies cough Cardiovascular: Reports mid CP- similar to last night when she was evaluated in ER at [facility] GI: Denies abdominal pain, nausea, vomiting, or diarrhea. Denies feeling bloated in abd. : Denies dysuria or hematuria [] Musculoskeletal: Denies back/neck pain or joint pain [] Integument: Denies rash, swelling or skin lesions [] Neurologic: Denies headache, focal weakness or sensory changes. Denies dizziness All other systems were reviewed and found to be within normal limits, except as documented in this note. Current Medications Current Medications Current Medications Medications (Trade) Dose Ordered Sig/Rex Start Time Stop Time Status Last Admin Dose Admin Multi-Ingredient Mouthwash/Gargle (Gi Cocktail) 20 ml 1X ONCE 12/19/17 20:30 12/19/17 20:31 DC 12/19/17 20:31 20 ML Allergies Allergies Allergies Coded Allergies Type Severity Reaction Last Updated Verified fentanyl Allergy Intermediate 01/27/17 Yes meperidine Allergy Intermediate 01/27/17 Yes morphine Allergy Intermediate 01/27/17 Yes onion Allergy Intermediate 01/27/17 Yes promethazine Allergy Intermediate 01/27/17 Yes Physical Exam Physical Exam Constitutional: Well developed, well nourished, no acute distress, non-toxic appearance. Speaking in full sentences HENT: Normocephalic, atraumatic, mucous membranes pink/moist- no pharyngeal erythema/swelling- uvula midline, no oral exudates, nose normal. [] Eyes: pupils equal, conjunctiva normal, no discharge. [] Neck: Normal range of motion, no tenderness, supple, no stridor.Trachea midline - no crepitus Cardiovascular: Heart rate regular rhythm, no murmur [] Lungs & Thorax: Bilateral breath sounds clear to auscultation. Resp. equal/ nonlabored. Hiccups intermittently during discussion- when speaking pt is not having hiccups and then when she stops she starts to have intermittently Abdomen: Bowel sounds normal, soft/obese- no rigidity, no tenderness, no masses , no pulsatile masses. [] Skin: Warm, dry, no erythema, no rash. [] Back: No tenderness, no CVA tenderness. [] Extremities: No tenderness, no cyanosis, no clubbing, ROM intact, no edema. [] Neurologic: Alert and oriented X 3, normal motor function, normal sensory function, no focal deficits noted. [] Psychologic: Affect normal, judgement normal, mood normal. [] Physical exam by Dr. Hartman: Constitutional: Well developed, well nourished, no acute distress, HENT: Normocephalic, atraumatic, Eyes: Conjunctiva normal, no discharge. [] Lungs & Thorax: No distress Skin: Warm, dry, Neurologic: Alert and oriented X 3, speech normal Current Patient Data Vital Signs Vital Signs Date Time Temp Pulse Resp B/P (MAP) Pulse Ox O2 Delivery O2 Flow Rate FiO2 12/19/17 22:30 88 20 155/68 (97) 99 Room Air 12/19/17 20:12 98.0 98.0 EKG EKG EKG obtained 12/19/17 at [address] Hartman Sinus rhythm Prolonged QT interval Rate 90 No STEMI Radiology/Procedures Radiology/Procedures [] Course & Med Decision Making Course & Med Decision Making 2030: Spoke with Dr. Casey, pt's plate and weld inspector and discussed pt's case. Discussed that Dr. Hartman who is attending [facility] was at work last night at [facility]. and pt had 2 troponins with 2 hr interval and CTA chest d/t elevated DDimer with all tests NL. Per his request will have pt's Biotronik dual chamber pacemaker interrogated and if NL will discharge home- he is ok with no additional testing/labs as pt had full work-up last night with NL results. Order for GI cocktail placed. This was discussed with pt and she is agreeable with plan. She remains stable with no resp. distress. Speaking in full sentences- again with hiccups stopping during conversation. 2122: [employer] staff at bedside to interrogate pacemaker. Pt had reported some relief in chest discomfort with GI cocktail. 2139: Americo Evans, Podaddies reported pt's pacemaker is functioning appropr. and that he was contacting Dr. Casey with that information. This was discussed with Dr. Hartman. Pt remains nontoxic in appearance and in no visible distress. She is speaking in full sentences with equal/nonlabored resp. When pt is speaking she appears to not have hiccups and then when she stops talking she will have occasional ones. Discussed plans for home discharge and pt to f/u with PCP in next 2-3 days for re-evaluation. Education provided on signs and symptoms for her to return to ER for and discharge instructions were discussed. Discharge instructions were again discussed- will provide Rx for Meclizine with education on medication. During d/c discussion pt was drinking water and had no hiccups during discussion- she reports she feels the cold water improved her sxs. She reports she is feeling better than at time of arrival- she is denying any CP/SOA. She is in no visible distress. Dragon Disclaimer Dragon Disclaimer This electronic medical record was generated, in whole or in part, using a voice recognition dictation system. Departure Departure Impression: Primary Impression: Hiccups Disposition: HOME, SELF-CARE Condition: STABLE Referrals: TRISHA LEE (PCP) Patient Instructions: Hiccups Additional Instructions: If symptoms persist follow-up with your primary care physician in next 2-3 days. Scripts Meclizine Hcl (MECLIZINE HCL) 25 Mg Tablet 25 MG PO Q6HRS PRN for HICCUPS, #10 TAB 0 Refills Prov: MARV MARKS APRN 12/19/17 Attending Signature Attending Signature I have personally interviewed and examined the patient. All charts, labs, and imaging studies were reviewed. I agree with the PA/LEAD TINNER's findings, exam, and plan. MARV MARKS APRN Dec 19, 2017 21:04 LAUREN HARTMAN DO Dec 21, 2017 14:55
[2017-12-19] MEDS ORDERED: MECL25TA3 PO (22:27)
[2017-12-19 22:30] VITALS: BP 155/68
--- NOTE | 2017-12-20 03:08 | EKG ---
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
== END 2017-12-19 22:30 | disposition home or self-care (01) ==
LOC: ER 20:08
DX: R06.6 Hiccough (principal); J45.909 Unspecified asthma, uncomplicated; I10 Essential (primary) hypertension; Z95.0 Presence of cardiac pacemaker; Z88.5 Allergy status to narcotic agent; Z88.8 Allergy status to other drugs, medicaments and biological substances; Z88.6 Allergy status to analgesic agent; Z91.018 Allergy to other foods
CPT/HCPCS: 93005; 99283

== ENCOUNTER → 2018-07-06 | Outpatient (CLI) | payer OTHER ==
[~2018-07-06] MED LIST changes: +ACET500T68 PO; +ALBU2.5V8 INH; +FURO40TA4 PO; +HYDR-3164 PO; -HYDR-971 PO; +HYDR25TA PO; +LEVO25TA4 PO; +MECL25TA3 PO; +METO50TA4 PO; -PROAIR HFA8.5 GM INH; +TRAM50TA PO
[2018-07-06 11:33] LABS: BASO # 0.1 x10^3/uL (0.0-0.2); BASO % 1 % (0-3); EOS # 0.3 x10^3/uL (0.0-0.7); EOS % 3 % (0-3); HEMATOCRIT 40.8 % (36.0-47.0); HEMOGLOBIN 13.6 g/dL (12.0-15.5); LYMPH # 2.5 x10^3/uL (1.0-4.8); LYMPH % 31 % (24-48); MEAN CORPUSCULAR HEMOGLOBIN 28 pg (25-35); MEAN CORPUSCULAR HGB CONC 33 g/dL (31-37); MEAN CORPUSCULAR VOLUME 85 fL (79-100); MONO # 0.5 x10^3/uL (0.0-1.1); MONO % 6 % (0-9); NEUT # 4.9 x10^3uL (1.8-7.7); NEUT % 59 % (31-73); PLATELET COUNT 337 x10^3/uL (140-400); RED BLOOD COUNT 4.83 x10^6/uL (3.50-5.40); RED CELL DISTRIBUTION WIDTH 13.8 % (11.5-14.5); WHITE BLOOD COUNT 8.3 x10^3/uL (4.0-11.0)
[2018-07-06 11:52] LABS: ALBUMIN 3.5 g/dL (3.4-5.0); ALBUMIN/GLOBULIN RATIO 0.8 (1.0-1.7); CALCIUM 9.1 mg/dL (8.5-10.1); CREATININE 1.1 mg/dL (0.6-1.0); GFR 55.6; POTASSIUM 3.5 mmol/L (3.5-5.1); TOTAL BILIRUBIN 0.2 mg/dL (0.2-1.0)
[2018-07-06 12:05] LABS: THYROID STIM HORMONE (TSH) 1.396 uIU/mL (0.358-3.74)
--- NOTE | 2018-07-06 12:31 | RAD ---
AP and Lateral Views of the Chest 07/06/2018 10:26 AM Indication: Preoperative Comparison: Chest radiograph April 21, 2017 Findings: There is a dual-lead pacemaking device from a left subclavian approach, which is grossly similar in appearance to prior study. There is no focal consolidation or infiltrate identified. Heart size is normal. There is no evidence of pneumothorax or pleural effusion. No acute osseous abnormalities are identified. Impression: No evidence of acute cardiopulmonary process. Electronically signed by: Kevin Goodrich MD (07/06/2018 12:28 PM) [id number]
--- NOTE | 2018-07-10 17:34 | NUR ---
PATIENT PRE - OP TEST REPORTS WERE FAXED TO 'S OFFICE AT 1842 07/07/2018 AND RECEIVED TRANSMITTAL CONFIRMATION . 'S OFFICE WAS CALLED BY SEGUN CLEARY RN-[facility] OFFICE 07/08/2018 TO CHECK IF EKG DONE 12/19/2017 WAS OKAY BUT OFFICE NURSE PRACTITIONER SAID WAIT TILL COMES BACK 07/10/2018 IN OFFICE. FAMILIA STAFFORD AT 'S OFFICE CALLED AT 1100 07/10/2018 AND SAID EKG WAS OKAY AND PATIENT ALREADY HAS CARDIAC CLEARANCE NOTE FROM DATED 03/08/2018 AND THAT WAS OKAY WITH .
== END | disposition home or self-care (01) ==
LOC: SURGPAT 10:17
PROVIDERS: ATTEND Obstetrics & Gynecology
DX: Z01.818 Encounter for other preprocedural examination (principal); E66.01 Morbid (severe) obesity due to excess calories; E07.89 Other specified disorders of thyroid
CPT/HCPCS: 36415; 71046; 80053; 84439; 84443; 85025

== ENCOUNTER 2018-07-15 05:38 | Observation (INO) | payer OTHER ==
[~2018-07-15] VITALS: Ht 157.5 cm; Wt 128.4 kg
[2018-07-15] MEDS ORDERED: ESTROGENS, CONJ VAGINAL CREAM 30GM TUBE. ONE (05:47)
[2018-07-15] MEDS ORDERED: BUPIVACAINE-EPI 0.25%-1:200000 MPF 30 ML VIAL. ONE (05:47)
[2018-07-15] MEDS ORDERED: ceFAZolin SODIUM 3 GM in IV DEXTROSE 5% 100ML 100 ML IV PRN (06:00)
[2018-07-15] MEDS ORDERED: IV RINGERS,LACTATED 1000ML 1,000 ML IV SCH (07:00)
[2018-07-15] MEDS ORDERED: ONDANSETRON PF 4 MG/2 ML VIAL. IV PRN ×2 (07:00→10:00)
[2018-07-15] MEDS ORDERED: PROPOFOL 20 ML IV ONE (07:11)
[2018-07-15] MEDS ORDERED: ONDANSETRON PF 4 MG/2 ML VIAL. ONE (07:11)
[2018-07-15] MEDS ORDERED: ROCURONIUM 50 MG/5 ML VIAL. ONE (07:11)
[2018-07-15] MEDS ORDERED: LIDOCAINE 2% PF 5 ML VIAL. ONE (07:11)
[2018-07-15] MEDS ORDERED: DEXAMETHASONE SOD PHOS 4 MG/ML VIAL ONE (07:11)
[2018-07-15] MEDS ORDERED: KETAMINE HCL IN NACL, ISO-OSM 50 MG/5 ML SYRINGE ONE (07:11)
[2018-07-15 07:31] LABS: U PREG PATIENT NEGATIVE (NEG)
[2018-07-15] MEDS ORDERED: hydrOXYzine 25 MG TABLET PO PRN (07:45)
[2018-07-15] MEDS ORDERED: FUROSEMIDE 40 MG TABLET. PO PRN (07:45)
[2018-07-15] MEDS ORDERED: BUDESONIDE 0.5 MG/2 ML NEBU. NEB SCH (08:00)
[2018-07-15] MEDS: ALBUTEROL SULFATE 2.5 MG/3 ML NEBU. NEB SCH ×3 (08:00→16:40)
[2018-07-15] MEDS ORDERED: KETOROLAC 30 MG/ML INJ FOR OR. INJ ONE (08:06)
[2018-07-15] MEDS ORDERED: GLYCOPYRROLATE 1 MG/5 ML VIAL. ONE (08:31)
[2018-07-15] MEDS ORDERED: NEOSTIGMINE METHYLSULFATE 5 MG/5 ML SYRINGE. ONE (08:31)
[2018-07-15] MEDS ORDERED: DESFLURANE 61 TO 120 MINUTES IH ONE (08:32)
[2018-07-15] MEDS: METOPROLOL SUCC 24HR ER 50 MG TAB.ER.24H. PO SCH (09:00)
[2018-07-15] MEDS: levETIRAcetam 500 MG TABLET PO SCH ×2 (09:00→21:00)
[2018-07-15] MEDS ORDERED: NON FORMULARY ITEM (Budesonide/Formoterol Fumarate (Symbicort 160-4.5 Mcg Inhaler) 1 PUFF) IH SCH (09:00)
[2018-07-15] MEDS: FLUoxetine HCL 20 MG CAPSULE PO SCH (09:00)
[2018-07-15] MEDS ORDERED: HYDROmorphone 2 MG/ML VIAL IV PRN (09:30)
--- NOTE | 2018-07-15 09:50 | PDOC ---
BRIEF OPERATIVE NOTE Date: July 15, 2018 Pre-Op Diagnosis pelvic pain, menorrhagia, dub, h/o ovarian cysts Post-Op Diagnosis same plus mild adhesions Procedure Performed LAVH/BSO with adhesiolysis Surgeon Dr. Isabel Toro Split Leather Department Supervisor Karie Benites 1st assist An[address]. Cho Anesthesia Type: General Blood Loss 150cc IV Fluid 600cc Urine Output 100cc clear via fan Specimens Obtained cervix, uterus, bilateral tubes and ovaries Findings mildly enlarged RV uterus, normal bilateral tubes and ovaries, left tube/ovary mildly adhesed to omentum and some omentum adhesed to anterior abdominal wall and in posterior cul de sac but all mild filmy adhesions Complications none Operative Note [id number] ISABEL TORO MD July 15, 2018 09:50
[2018-07-15] MEDS ORDERED: SIMETHICONE 80 MG TAB.CHEW PO PRN (10:00)
[2018-07-15] MEDS ORDERED: 0.9 % SODIUM CHLORIDE 10 ML DISP.SYRIN. IV PRN (10:00)
[2018-07-15] MEDS ORDERED: LACTULOSE 20 GM/30 ML SOLUTION. PO PRN (10:00)
[2018-07-15] MEDS ORDERED: NALOXONE 0.4 MG/ML VIAL. IV PRN (10:00)
[2018-07-15] MEDS ORDERED: CALCIUM CARBONATE 500 MG TAB.CHEW PO PRN (10:00)
[2018-07-15] MEDS ORDERED: MAG HYDROX/ALUMINUM HYD/SIMETH 30 ML ORAL.SUSP PO PRN (10:00)
[2018-07-15] MEDS ORDERED: MAGNESIUM HYDROXIDE 2,400 MG/30 ML ORAL.SUSP. PO PRN (10:00)
[2018-07-15] MEDS ORDERED: ZOLPIDEM 5 MG TABLET. PO PRN (10:00)
[2018-07-15] MEDS ORDERED: diphenhydrAMINE 50 MG/ML VIAL IV PRN (10:00)
[2018-07-15] MEDS ORDERED: oxyCODONE/APAP 5/325 1 TAB TABLET PO PRN (10:00)
[2018-07-15] MEDS ORDERED: KETOROLAC 30 MG/ML VIAL. IV PRN (10:00)
[2018-07-15] MEDS ORDERED: diphenhydrAMINE HCL 25 MG CAPSULE PO PRN (10:00)
[2018-07-15] MEDS ORDERED: METOCLOPRAMIDE HCL 10 MG/2 ML VIAL. IV PRN (10:00)
[2018-07-15] MEDS: LEVOTHYROXINE 25 MCG TABLET. PO SCH (10:30)
[2018-07-15] MEDS ORDERED: PROCHLORPERAZINE 10 MG/2 ML VIAL. ONE (10:50)
[2018-07-15] MEDS: PROCHLORPERAZINE 10 MG/2 ML VIAL. IV PRN ×2 (10:58→20:37)
[2018-07-15] MEDS ORDERED: SCOPOLAMINE 1.5MG PATCH. TD ONE (11:00)
[2018-07-15 11:30] VITALS: BP 114/68
--- NOTE | 2018-07-15 16:00 | NUR ---
called Dr Toro pt has not been able to void st. cath ordered
[2018-07-15 17:30] VITALS: BP 96/50
[2018-07-15] MEDS ORDERED: ALBUTEROL SULFATE 2.5 MG/3 ML NEBU. NEB PRN (18:15)
--- NOTE | 2018-07-15 18:44 | NUR ---
[address] cathed with 250 dark yani urine
[2018-07-15] MEDS: DIVALPROEX DELAYED RELEASE 500 MG TABLET.DR. PO SCH (21:00)
[2018-07-15 23:16] VITALS: BP 104/59
[2018-07-16 04:19] LABS: CALCIUM 8.6 mg/dL (8.5-10.1); GFR 62.1; POTASSIUM 3.9 mmol/L (3.5-5.1)
[2018-07-16] MEDS: LEVOTHYROXINE 25 MCG TABLET. PO SCH ×2 (06:15→08:18)
[2018-07-16 06:27] VITALS: BP 121/72
[2018-07-16] MEDS: DIVALPROEX DELAYED RELEASE 500 MG TABLET.DR. PO SCH (08:17)
[2018-07-16] MEDS: METOPROLOL SUCC 24HR ER 50 MG TAB.ER.24H. PO SCH (08:19)
[2018-07-16] MEDS: FLUoxetine HCL 20 MG CAPSULE PO SCH (08:19)
[2018-07-16] MEDS: levETIRAcetam 500 MG TABLET PO SCH (08:30)
--- NOTE | 2018-07-16 11:06 | OP ---
DATE OF SURGERY: 07/15/2018 PREOPERATIVE DIAGNOSES: History of recurrent ovarian cysts, menorrhagia, dysfunctional uterine bleeding and pelvic pain, desiring definitive therapy. POSTOPERATIVE DIAGNOSES: History of recurrent ovarian cysts, menorrhagia, dysfunctional uterine bleeding and pelvic pain, desiring definitive therapy plus mild adhesive disease, filmy omental adhesions. PROCEDURE: Laparoscopic-assisted vaginal hysterectomy, bilateral salpingo-oophorectomy with adhesiolysis. SURGEON: Salbador Toro MD. CHILDREN'S BOOK AUTHOR: first celia Oneill. ANESTHESIOLOGIST: Dr. Cho. ANESTHESIA: General. BLOOD LOSS: 150 mL. URINE OUTPUT: 100 mL, clear via Cohen catheter. INTRAVENOUS FLUIDS: 600 mL of crystalloid. SPECIMEN REMOVED: Cervix, uterus, bilateral tubes and ovaries. FINDINGS: She had a mildly enlarged retroverted uterus, normal bilateral tubes and ovaries. Left tube and ovary mildly adhesed to the omentum. There were some omental adhesions filmy in the posterior cul-de-sac behind the uterus as well as a strand adhesed to the anterior abdominal wall. COMPLICATIONS: None. DESCRIPTION OF PROCEDURE: This patient was taken to the operating room where general anesthesia was placed. The patient was placed in a dorsal lithotomy position in [facility]. The patient's abdomen and vagina were prepped and draped in the normal sterile fashion and a Cohen catheter had been inserted under sterile technique. Upon my arrival, a timeout was performed where everyone agreed she had gotten her IV antibiotics, all of her allergies and what the procedure to be performed. At this point, once everyone agreed, a bivalve speculum was placed in the patient's vagina. A single tooth tenaculum was used to grasp the anterior lip of the cervix. A 10 mL of 0.25% Marcaine with epinephrine was used to circumferentially inject around the cervix for both hemodissection and hemostatic purposes later. The Valtchev uterine manipulator was placed through the endocervical os, locked on the single tooth tenaculum and the bivalve speculum was then removed. Top gloves were discarded and changed. Attention was then turned to the abdomen where a small supraumbilical skin incision was made with the scalpel. A curved Funmilayo was used to dissect through the subcuticular layer to the fascia. The 5 mm Visiport was used to directly enter the abdominal cavity. Opening pressure was 5-6 mmHg. Carbon dioxide gas was used to then appropriately insufflate the abdominal cavity to maintain a pressure of 15 mmHg. The patient was placed in Trendelenburg position. The left lower quadrant and right lower quadrant ports were placed after transilluminating the abdomen, which was difficult due to her body habitus, the finding an area clear of any vasculature, the whole underneath there was clear and placing it under direct visualization. These were of 5 mm atraumatic ports with the cuffs on them. Once they were in, 4 mL of air was placed in the cuff to hold it in. I then did move the camera to look at the umbilical port. It too was clear. So, air was placed in this cuff as well. The camera was moved back to the midline with the above findings. The filmy adhesions were taken off the left tube and ovary, they were elevated. The ureter was seen coursing low in the pelvis. The right tube and ovary were free. There were some filmy adhesions in the posterior cul-de-sac behind the uterus that was taken down with the [place], some bladder adhesions from her 2 previous sections that were taken down sharply when we did the bladder flap, but nothing significant. Right upper quadrant was normal. The appendix appeared grossly normal. So at this point, the procedure was started. We started on the left side after taking down the filmy omental adhesions off the left tube and ovary elevating it, finding the ureter coursing low, staying high on the infundibulopelvic ligament using the LigaSure to cauterize and cut the infundibulopelvic ligament, going under the ovary under the tube crossing the left round ligament and going down and starting that bladder flap anteriorly. This was done exactly the same on the right side, elevating the right tube and ovary, finding the ureter, coursing, staying high on the infundibulopelvic ligament away from that, getting that, going under the tube and ovary and then crossing the right round ligament. The uterus was pushed cephalad toward the head and down and the [place] was used to elevate the bladder flap and the monopolar hook was used to cauterize and cut across and make the bladder flap sharply. Once it was pulled down, the uterine vessels were obtained on both sides and going down staying hugging the cervix to the uterosacral ligaments bilaterally, cauterizing and cutting with the LigaSure. Once this was done and the uterus was free, it was completely blanched and mobile and the blood supply was obtained. Attention was turned vaginally. All instruments were removed from the abdomen and attention was turned vaginally. The patient was taken out of Trendelenburg, given a break. Her legs were elevated. A weighted speculum was placed in the vagina. The single tooth and Valtchev were removed. Thyroid Jus clamps were placed on the anterior and posterior lips of the cervix respectively. Once this was done, a scalpel was used to make a circumferential incision in the cervix. The posterior cul-de-sac was sharply entered with the curved Steinberg scissors. A #0 Vicryl stitch was used to secure the posterior peritoneum here to the vaginal cuff. It was tagged with a curved Funmilayo clamp and the needle was cut and passed off. The short weighted vaginal speculum was removed and replaced with the long weighted Rosa speculum in the posterior cul-de-sac. Once this was done, an open Ray-Ulises 4 x 4 was used to gently push up the anterior bladder peritoneum with excellent results. Curved Gaby clamps x 2 were placed on the patient's left uterosacral ligament where they were doubly clamped with curved Gaby's, cut with curved Steinberg scissors and suture ligated x 2 with 0 Vicryl. The second one was taken through the vaginal cuff securing uterosacral ligament to the vaginal cuff and tagged with a straight Funmilayo clamp and the needle was cut and passed off. This was done exactly the same on the patient's right side, double clamping the uterosacrals with curved Gaby's, cutting with Steinberg scissors, suture ligating x 2 with 0 Vicryl and taking it through the vaginal cuff and tagging it with a straight Funmilayo clamp, cutting and passing the needle off. The remaining pedicle on the left side was delineated with the curved mixture and the vaginal LigaSure was used to cauterize this pedicle. I could take it all the way around. There was a tiny pedicle left on the right, again it was delineated with this, cauterized and cut. Cervix, uterus, bilateral tubes and ovaries were delivered in total and passed off for permanent pathology. The long weighted Rosa speculum was removed and replaced with a short weighted vaginal speculum. A sponge stick was used to examine the pedicles which appeared hemostatic. I could not quite get to the anterior bladder peritoneum as it was very high with some adhesions, but I did get a good bite with a 2-0 Vicryl here. I took it through the left uterosacral ligament, posterior peritoneum and right uterosacral ligament, thus closing the peritoneum in a pursestring like fashion. Once this was done, the right and left uterosacral tags were clipped and the cuff was closed in an anterior to posterior running locked fashion and tied to that posterior cuff tag. A few imbricating stitches was placed over this with excellent results and the cuff was hemostatic. At this point, all instruments were removed vaginally and all sponge, lap and needle counts were correct x 2 by OR personnel. All gloves were discarded and changed. Attention was turned back above for a second look where copious irrigation revealed hemostasis. The cul-de-sac and the pericolic gutters were clear on both sides and Tisseel was placed over the cuff with excellent results. The right and left lower quadrant balloons were deflated and taken out under direct visualization. These too were hemostatic. Gas was released from the umbilical port. That cuff was deflated, it was also removed. All 3 port sites were closed with 4-0 nylon at the skin and injected with 10 mL of local. The patient was then awakened from anesthesia, extubated, and is now being brought to recovery room in stable condition. SALBADOR TORO MD DR: ROMULO/tyler JOB#: [id number] / [id number]
[2018-07-16 12:30] VITALS: BP 117/74
--- NOTE | 2018-07-16 12:42 | PDOC ---
SURGICAL PROGRESS NOTE Subjective Doing well without complaints. No n/v, scant spotting when voiding. Tolerating a regular diet and ambulating well. Voiding without catheter and wants to go home Vital Signs Vital Signs Date Time Temp Pulse Resp B/P (MAP) Pulse Ox O2 Delivery O2 Flow Rate FiO2 07/16/18 08:19 80 121/72 07/16/18 06:27 98.4 16 96 98.4 07/15/18 23:16 Room Air 07/15/18 11:30 2.0 I&O Intake and Output 07/16/18 06:59 Intake Total 900 ml Output Total 900 ml Balance 0 ml IV Total 900 ml Output Urine Total 750 ml Estimated Blood Loss 150 ml # Voids 1 PATIENT HAS A DOTY: No General: Alert, Oriented X3, Cooperative, No acute distress HEENT: Atraumatic Heart: Regular rate Abdomen: Soft, No tenderness, No masses, Other (all 3 port sites c/d/i with bandaids) Extremities: No clubbing, No cyanosis, No edema, No tenderness/swelling Skin: No rashes, No breakdown Neuro: Normal speech Psych/Mental Status: Mental status NL, Mood NL Labs Laboratory Tests Test 07/15/18 06:00 07/16/18 03:20 Urine Test Negative (NEG) Hematocrit 36.7 % (36.0-47.0) Sodium Level 142 mmol/L (136-145) Potassium Level 3.9 mmol/L (3.5-5.1) Chloride Level 105 mmol/L (98-107) Carbon Dioxide Level 26 mmol/L (21-32) Anion Gap 11 (6-14) Blood Urea Nitrogen 12 mg/dL (7-20) Creatinine 1.0 mg/dL (0.6-1.0) Estimated GFR (Cockcroft-Gault) 62.1 Glucose Level 107 mg/dL (70-99) Calcium Level 8.6 mg/dL (8.5-10.1) Laboratory Tests Test 07/16/18 03:20 Hematocrit 36.7 % (36.0-47.0) Sodium Level 142 mmol/L (136-145) Potassium Level 3.9 mmol/L (3.5-5.1) Chloride Level 105 mmol/L (98-107) Carbon Dioxide Level 26 mmol/L (21-32) Anion Gap 11 (6-14) Blood Urea Nitrogen 12 mg/dL (7-20) Creatinine 1.0 mg/dL (0.6-1.0) Estimated GFR (Cockcroft-Gault) 62.1 Glucose Level 107 mg/dL (70-99) Calcium Level 8.6 mg/dL (8.5-10.1) I have reviewed the following labs, vitals, nursing Cardiovascular: Other (pacemaker) Pulmonary: No pertinent hx GI: No pertinent hx Assessment/Plan POD#1 s/p LAVH/BSO/adhesiolysis Routine PO care NPV x 6 weks Light/limited activity x 2 weeks d/c to home no driving on narcotics already has pain pills at home keep scheduled follow up call or return sooner for any other questions or concerns not limited to but including pain unrelieved with pain pills, increased or unexplained vaginal bleeding or T>100.4 SALBADOR SUBRAMANIAN MD July 16, 2018 12:42
--- NOTE | 2018-07-16 12:47 | PDOC3 ---
Discharge Summary Visit Information Date of Admission: July 15, 2018 Date of Discharge: July 16, 2018 Final Diagnosis menorrhagia, pelvic pain, adhesions Brief Hospital Course Allergies Allergies Coded Allergies Type Severity Reaction Last Updated Verified fentanyl Allergy Intermediate 07/15/18 Yes meperidine Allergy Intermediate 07/15/18 Yes morphine Allergy Intermediate 07/15/18 Yes onion Allergy Intermediate 07/15/18 Yes promethazine Allergy Intermediate 07/15/18 Yes Vital Signs Vital Signs Date Time Temp Pulse Resp B/P (MAP) Pulse Ox O2 Delivery O2 Flow Rate FiO2 07/16/18 08:19 80 121/72 07/16/18 06:27 98.4 16 96 98.4 07/15/18 23:16 Room Air 07/15/18 11:30 2.0 Lab Results Laboratory Tests Test 07/15/18 06:00 07/16/18 03:20 Urine Test Negative (NEG) Hematocrit 36.7 % (36.0-47.0) Sodium Level 142 mmol/L (136-145) Potassium Level 3.9 mmol/L (3.5-5.1) Chloride Level 105 mmol/L (98-107) Carbon Dioxide Level 26 mmol/L (21-32) Anion Gap 11 (6-14) Blood Urea Nitrogen 12 mg/dL (7-20) Creatinine 1.0 mg/dL (0.6-1.0) Estimated GFR (Cockcroft-Gault) 62.1 Glucose Level 107 mg/dL (70-99) Calcium Level 8.6 mg/dL (8.5-10.1) Laboratory Tests Test 07/16/18 03:20 Hematocrit 36.7 % (36.0-47.0) Sodium Level 142 mmol/L (136-145) Potassium Level 3.9 mmol/L (3.5-5.1) Chloride Level 105 mmol/L (98-107) Carbon Dioxide Level 26 mmol/L (21-32) Anion Gap 11 (6-14) Blood Urea Nitrogen 12 mg/dL (7-20) Creatinine 1.0 mg/dL (0.6-1.0) Estimated GFR (Cockcroft-Gault) 62.1 Glucose Level 107 mg/dL (70-99) Calcium Level 8.6 mg/dL (8.5-10.1) Brief Hospital Course Ms. Dennis is a 38 old female who presented with menorrhagia and pelvic pain. She underwent and LAVH/BSO and adhesiolysis without complications. Voiding without catheter, tolerating a regular diet, ambulating well. Will be d/c to home later today Discharge Information Condition at Discharge: Stable Follow Up: Weeks Disposition/Orders: D/C to Home Scheduled Budesonide/Formoterol Fumarate (Symbicort 160-4.5 Mcg Inhaler) 10.2 Gm Hfa.aer.ad, 1 PUFF IH BID, (Reported) Entered as Reported by: SALBADOR DUBOSE on 01/06/17655 Last Taken: Unknown Dose on 07/09/18 Last Action: Converted on 07/15/18736 by SALBADOR SUBRAMANIAN Divalproex Sodium (Depakote) 500 Mg Tablet.dr, 500 MG PO BID, (Reported) Entered as Reported by: SALBADOR DUBOSE on 01/06/17655 Last Taken: Unknown Dose on 07/15/18444 Last Action: Converted on 07/15/18736 by SALBADOR SUBRAMANIAN Fluoxetine Hcl (Fluoxetine Hcl) 40 Mg Capsule, 40 MG PO DAILY, (Reported) Entered as Reported by: SALBADOR DUBOSE on 01/06/17655 Last Taken: Unknown Dose on 07/15/18444 Last Action: Converted on 07/15/18736 by SALBADOR SUBRAMANIAN Levetiracetam (Keppra) 500 Mg Tablet, 500 MG PO BID, (Reported) Entered as Reported by: SALBADOR DUBOSE on 01/06/17655 Last Taken: Unknown Dose on 07/15/18444 Last Action: Continued on 07/15/18736 by SALBADOR SUBRAMANIAN Levothyroxine Sodium (Levothyroxine Sodium) 25 Mcg Tablet, 25 MCG PO DAILYAC for THYROID SUPPLEMENT, #30 Ref 0 (Reported) Entered as Reported by: ANTONIO VIVAR on 07/06/181048 Last Taken: Unknown Dose on 07/15/18444 Last Action: Converted on 07/15/18736 by SALBADOR SUBRAMANIAN Metoprolol Succinate (Toprol Xl) 50 Mg Tab.er.24h, 50 MG PO DAILY for BP, (Reported) Entered as Reported by: ANTONIO VIVAR on 07/06/181044 Last Taken: Unknown Dose on 07/15/18444 Last Action: Continued on 07/15/18736 by SALBADOR SUBRAMANIAN Scheduled PRN Acetaminophen (Acetaminophen) 500 Mg Tablet, 1,000 MG PO Q6HRS PRN for PAIN, (Reported) Entered as Reported by: ANTONIO VIVAR on 07/06/18 104 Last Taken: Unknown Dose on 07/02/18 Last Action: HELD on 07/15/18736 by SALBADOR SUBRAMANIAN Albuterol Sulfate (Proair Hfa Inhaler) 8.5 Gm Hfa.aer.ad, 2 PUFF INH PRN Q6HRS PRN for SHORTNESS OF BREATH, Ref 0 (Reported) Entered as Reported by: BIB HANKS on 01/06/17 1245 Last Taken: Unknown Dose on 07/15/18444 Last Action: Last Taken Edited on 07/15/18614 by JONNY RODRIGUEZ Furosemide (Furosemide) 40 Mg Tablet, 1 TAB PO DAILY PRN for SWELLING, #30 Ref 5 (Reported) Entered as Reported by: ANTONIO VIVAR on 07/06/18 1043 Last Taken: Unknown Dose on 07/14/18 Last Action: Continued on 07/15/18736 by SALBADOR SUBRAMANIAN Hydroxyzine Hcl (Hydroxyzine Hcl) 25 Mg Tablet, 50 MG PO TID PRN for ANXIETY / AGITATION, (Reported) Entered as Reported by: ANTONIO VIVAR on 07/06/18 1042 Last Taken: Unknown Dose on 07/15/18444 Last Action: Continued on 07/15/18736 by SALBADOR SUBRAMANIAN Tramadol Hcl (Tramadol Hcl) 50 Mg Tablet, 50 MG PO Q6HRS PRN for PAIN, (Reported) Entered as Reported by: ANTONIO VIVAR on 07/06/18 1050 Last Taken: Unknown Dose on 07/02/18 Last Action: HELD on 07/15/18736 by SALBADOR SUBRAMANIAN Patient Instructions Patient Instructions POD#1 s/p LAVH/BSO/adhesiolysis Routine PO care NPV x 6 weks Light/limited activity x 2 weeks d/c to home no driving on narcotics already has pain pills at home keep scheduled follow up call or return sooner for any other questions or concerns not limited to but including pain unrelieved with pain pills, increased or unexplained vaginal bleeding or T>100.4 SALBADOR SUBRAMANIAN MD July 16, 2018 12:47
--- NOTE | 2018-07-17 20:06 | PATHOLOGY ---
[facility] Accession Number: [id number] . 01 Material submitted: . uterus - UTERUS WITH CERVIX WITH BILATEERAL FALLOPIAN TUBES AND OVARIES . 01 Clinical history: . Menorrhagia, recurrent ovarian cyst, pelvic pain . 02 Diagnosis: Uterus and bilateral attached fallopian tubes and ovaries, laparoscopic assisted vaginal hysterectomy with bilateral salpingo-oophorectomy: - Adenomyosis, uterine corpus, focal, with myometrial hypertrophy (uterine weight 168 grams). - Proliferative endometrium. - Leiomyoma, uterine corpus, intramural, small. - Congestion of bilateral fallopian tubes. - Left paratubal cyst. - Cystic follicles of bilateral ovaries, multiple. ([facility] 07/17/2018) [facility]/07/17/2018 . 02 Comment: There is no atypia or evidence of malignancy. ([facility] 07/17/2018) . 02 Electronically signed: . Mckay Mark MD, Pathologist NPI- [id number] . 01 Gross description: . The specimen is received in formalin, labeled "Laura Dennis, uterus with cervix with bilateral fallopian tubes and ovaries", is a total hysterectomy specimen consisting of a uterine corpus with attached cervix (10.0 x 6.0 x 5.0 cm) and attached right, cystic garber-arevalo ovary (3.0 x 2.5 x 2.0 cm), left, cystic garber-arevalo ovary (2.8 x 2.7 x 1.7 cm), attached bilateral fimbriated fallopian tubes (right = 7.5 cm in length and up to 0.5 cm in diameter, and left, = 7.0 cm in length and up to 0.6 cm in diameter) and weighing 168 g in total. The anterior paracervical soft tissue is inked blue. The serosa is arevalo-pink and smooth. The ectocervix is arevalo-pink and glistening (2.8 x 2.5 cm) with a 1.2 cm slit-like external os. The endocervical canal measures 3.1 cm in length and up to 0.5 cm in width and is lined by a arevalo-pink mucosa. The triangular endometrial cavity measures 5.7 x 2.2 cm and is lined by 0.3 cm arevalo-pink endometrium. The arevalo-pink, markedly trabeculated myometrium measures up to 2.4 cm in width and has no discrete nodules. The ovaries have a arevalo-garber cerebriform, cystic external surface. The cut surfaces are white-garber, with a well-defined yellow nodule resembling corpus luteum and multiple white nodules resembling corpora albicantia. There is also few intraparenchymal cyst with a smooth lining and filled with clear serous fluid. The bilateral fallopian tube has pink-arevalo serosa without adhesions to the ovary. The fimbriae are normal in configuration. There is a 0.6 cm clear fluid-filled cyst, attached to the serosa of left fallopian tube. The lumen is patent throughout. Environmental Issues Instructor tissue is submitted as follows: A1. Anterior cervix. A2. Posterior cervix. A3-A4. Anterior endomyometrium (from lower uterine segment to fundus) A5-A6. Posterior endomyometrium (from fundus to lower uterine segment) A7-A8. Right ovary. A9. Right fimbriated fallopian tube. A10-A11. Left ovary. A12. Left fimbriated fallopian tube with paratubal cyst. ([facility]; 07/16/2018) [facility] . 02 Pathologist provided ICD-10: D25.9, N83.8, N83.01, N83.02 . 02 CPT . 787802 Specimen Comment: A courtesy copy of this report has been sent to Specimen Comment: [phone], . Specimen Comment: Report sent to / DR LEE Performed at: [address], [place] [id number] MD Saeid Vu MD Phone: [phone] Performed at: [address] [facility] [address] [place], [place] [id number] MD Mckay Mark MD Phone: [phone]
== END 2018-07-16 14:22 | disposition home or self-care (01) ==
LOC: SURG 05:38 → 3 NORTH 10:22
PROVIDERS: ADMIT Obstetrics & Gynecology; ATTEND Obstetrics & Gynecology
DX: N92.0 Excessive and frequent menstruation with regular cycle (principal); N93.8 Other specified abnormal uterine and vaginal bleeding; K66.0 Peritoneal adhesions (postprocedural) (postinfection); N85.4 Malposition of uterus; Z98.891 History of uterine scar from previous surgery; R55 Syncope and collapse; E66.01 Morbid (severe) obesity due to excess calories; R56.9 Unspecified convulsions; Z95.0 Presence of cardiac pacemaker; Z68.43 Body mass index [BMI] 50.0-59.9, adult
CPT/HCPCS: 36415; 58550; 80048; 81025; 85014; 86850; 86900; 86901; 88307; 96374; 96375; A7015; G0378; G0379; J0780; J1100; J1885; J2001; J2405; J2704; J2710; J3490; J7030; J7626

== ENCOUNTER → 2018-10-12 | Outpatient (CLI) | payer OTHER ==
[2018-10-12 16:24] LABS: VAL ACID 1 mcg/mL (50-100)
== END | disposition home or self-care (01) ==
LOC: LAB 15:03
PROVIDERS: ATTEND Psychiatry & Neurology Neurology with Special Qualifications in Child Neurology
DX: G40.309 Generalized idiopathic epilepsy and epileptic syndromes, not intractable, without status epilepticus (principal)
CPT/HCPCS: 36415; 80164; 80177

== ENCOUNTER → 2018-10-26 | Outpatient (CLI) | payer OTHER ==
--- NOTE | 2018-10-27 15:41 | EEG ---
DATE OF SERVICE: 10/26/2018 EEG NUMBER: [id number] performed on 10/26/2018. OBJECTIVE: The patient is a 38-year-old female with epilepsy, seizures related to stress, she states. In fact, she told the shale processing technician that she was not under stress and would probably not have an episode during the recording. DESCRIPTION: This is a 24-hour video EEG recording. Bipolar and referential montages are available. Electrodes are placed according to the international 10-20 system. Bipolar and referential montages are available. INTERPRETATION: The waking background consists of 9-10 Hz, 50-100 microvolt activity, symmetrically distributed over parietooccipital regions and reactive to eye opening. All stages of sleep are observed with normal electroencephalogram patterns. Hyperventilation and intermittent photic stimulation are noncontributory. All computer-identified abnormalities are reviewed and none are actually abnormal. The patient did not exhibit any clinical seizure activity during the recording. IMPRESSION: This electroencephalogram with the patient awake and asleep, a 24-hour video recording, is within normal limits. There is no focal, paroxysmal, epileptiform activity or clinical seizures during the 24-hour recording. Thank you for letting us help with the patient's care. KEVIN KATE MD DR: ADELA/tyler JOB#: [id number] / [id number] TRISHA Abel
== END | disposition home or self-care (01) ==
LOC: SLPLAB 05:51
PROVIDERS: ATTEND Psychiatry & Neurology Neurology with Special Qualifications in Child Neurology
DX: G40.309 Generalized idiopathic epilepsy and epileptic syndromes, not intractable, without status epilepticus (principal)
CPT/HCPCS: 95951

== ENCOUNTER → 2018-10-30 | Outpatient (CLI) | payer OTHER ==
[~2018-10-30] MED LIST changes: +GADOTERATE 7.5 MMOL/15ML VIAL. IVP ONE
[2018-10-30 13:13] VITALS: BP 124/73
[2018-10-30 13:48] VITALS: BP 103/52
--- NOTE | 2018-10-30 14:04 | NUR ---
Pt here for MRI. Pt was monitored throughout procedure. RN and pacemaker disability representative present. Pt was stable and tolerated procedure well. Ambulated out in stable condition.
--- NOTE | 2018-10-30 14:21 | RAD ---
MRI Brain with and without contrast History: Seizure Technique: Multiplanar, multi sequential pre and postcontrast MR imaging was performed of the brain. Comparison: None Findings: There is some motion degradation. There is no evidence of recent infarct or cytotoxic edema. The ventricles, sulci, and cisterns are within normal limits in size and configuration. There is no significant midline shift, intraaxial mass effect, or focal abnormal extra-axial fluid collection. Allowing for motion, there is no convincing significant signal abnormality of the brain parenchyma. Hippocampal formations are symmetric in size and signal characteristics. There is no nodular parenchymal or leptomeningeal enhancement. There is preservation of the major intracranial flow-voids at the skull base. The cerebellar tonsils are normal in location. There is no significant abnormality of the pineal gland or pituitary gland. There is patchy very mild ethmoid air cell and right maxillary sinus mucosal thickening. The mastoid air cells are aerated. There is preserved marrow signal of the clivus. Impression: 1. There is no significant intracranial abnormality. Electronically signed by: Gregorio Obregon MD (10/30/2018 2:18 PM) [id number]
== END | disposition home or self-care (01) ==
LOC: MRI 13:01
PROVIDERS: ATTEND Psychiatry & Neurology Neurology with Special Qualifications in Child Neurology
DX: J34.89 Other specified disorders of nose and nasal sinuses (principal); G40.309 Generalized idiopathic epilepsy and epileptic syndromes, not intractable, without status epilepticus
CPT/HCPCS: 70553; A9575

== ENCOUNTER → 2019-08-04 | Outpatient (CLI) | payer OTHER ==
[2018-10-30 13:48] VITALS: BP 103/52
[~2019-08-04] MED LIST changes: +DOXY-96 PO; -DOXY100T9 PO; -GADOTERATE 7.5 MMOL/15ML VIAL. IVP ONE; +MECL-75 PO; -MECL25TA3 PO
--- NOTE | 2019-08-05 13:35 | SLEEP ---
DATE OF STUDY: 08/04/2019 POLYSOMNOGRAM REPORT OBJECTIVE: The patient is a 39-year-old female with insomnia, nightmares, dream enactment, snoring, fatigue, observed apnea. [place] sleep score 19. Height 5 feet 2 inches, weight 283 pounds, body mass index 52. INTERPRETATION: Sleep architecture is characterized by a sleep efficiency of 88% across the 6.9 hours of recording time. Sleep onset latency is 16 minutes. Stage volumes are appropriate for age. Respiratory monitoring records a total of 93 events, 91 hypopneas and 2 apneas, almost all obstructive. The minimum oxygen saturation is 84%. The patient is started on treatment and at a setting of 12 cm, the apnea/hypopnea index is 0.7 events per hour of sleep. Periodic limb movements of sleep occur at the rate of 4 per hour, 0 per hour associated with arousal. No cardiac arrhythmias are observed. IMPRESSION: Abnormal polysomnogram showing obstructive sleep apnea and hypopnea, which should be treatable using 12 cm of CPAP, Respironics DreamWear full face mask, small size. RECOMMENDATIONS: 1. The patient should be started on this setting of CPAP. 2. She should pursue weight loss and avoid sedatives and alcohol. Thank you for letting us help with the patient's care. KEVIN KATE MD DR: ADELA/tyler JOB#: [id number] / [id number]
== END ==
LOC: SLPLAB 19:00
PROVIDERS: ATTEND Physician Assistant
DX: G47.33 Obstructive sleep apnea (adult) (pediatric) (principal)
CPT/HCPCS: 95810

== ENCOUNTER → 2019-08-11 | Outpatient (CLI) | payer OTHER ==
[2019-08-11 15:59] VITALS: BP 102/64
[2019-08-11 16:08] VITALS: BP 104/59
[2019-08-11 16:14] VITALS: BP 96/52
[2019-08-11 16:20] VITALS: BP 96/54
--- NOTE | 2019-08-11 16:22 | NUR ---
This RN was present throughout patient's MRI study. Patient's pacemaker adjusted by Armando with [employer]. Vital signs remained stable (see spreadsheet) throughout imaging study. Armando reset patient's pacemaker to original settings and patient walked out of MRI area without any problems.
--- NOTE | 2019-08-11 17:26 | RAD ---
MRI Lumbar Spine without contrast History: Low back pain with radiculopathy Technique: Multiplanar, multi sequential noncontrast MR imaging was performed of the lumbar spine. Comparison: None Findings: There is motion degradation. Lumbar vertebral body stature and AP alignment are maintained. There is mild disc desiccation L4-5 and L5-S1, intervertebral disc spaces relatively preserved. There is nonspecific edema of the posterior subcutaneous fat of the lower back. Conus terminates near L1-L2. There is no significant focal marrow edema. L1-L2: This level was not included on the axial images, spinal canal and neural foramina overall adequate. L2-L3: This level was not included on the axial images, spinal canal and neural foramina overall adequate. Individual descending nerve roots are difficult to distinguish on the sagittal images. L3-L4: There is moderate facet degenerative change. Spinal canal is minimally narrowed. There is degree of epidural lipomatosis of the far lateral recesses bilaterally as well as posteriorly, overall mild attenuation of the thecal sac, somewhat difficult to discern individual descending nerve roots in part likely due to mild attenuation of the thecal sac. L4-L5: There is moderate facet degenerative change and mild buckling of the ligamentum flavum. There is epidural lipomatosis near circumferentially greater posteriorly with resultant [id number] attenuation of the thecal sac. There is minimal disc osteophyte complex more eccentric to the inferior left neural foramen with mild narrowing, also very mild narrowing the right neural foramen mostly from posteriorly by facet. L5-S1: There is circumferential prominence of epidural fat with with degree of attenuation of the thecal sac although some preserved subarachnoid space. There is fairly severe facet degenerative change greater on the right. There is minimal disc osteophyte complex greater in the inferior neural foramina. There is moderate to severe narrowing of the right neural foramen, likely mild narrowing on the left. Impression: 1. Exam is degraded by motion. There is degree of attenuation of the thecal sac of the inferior lumbar spine by epidural lipomatosis. It is difficult to distinguish descending nerve roots in the thecal sac, may be accentuated by motion and attenuation of the thecal sac from epidural lipomatosis unless clinical suspicion for arachnoiditis. There is moderate to severe narrowing of the right L5-S1 neural foramen at which there is facet degenerative change. There is minimal spondylosis. Electronically signed by: Gregorio Obregon MD (08/11/2019 5:23 PM) [id number]
== END | disposition home or self-care (01) ==
LOC: MRI 13:58
PROVIDERS: ATTEND Physician Assistant
DX: M47.27 Other spondylosis with radiculopathy, lumbosacral region (principal); M51.36 Other intervertebral disc degeneration, lumbar region; M48.07 Spinal stenosis, lumbosacral region; E88.2 Lipomatosis, not elsewhere classified; M25.78 Osteophyte, vertebrae
CPT/HCPCS: 72148

== ENCOUNTER → 2019-09-17 | Outpatient (CLI) | payer OTHER ==
[2019-08-11 16:20] VITALS: BP 96/54
[~2019-09-17] MED LIST changes: +BUSP15TA PO; +CLOP75TA PO; +POTA10TA12 PO
--- NOTE | 2019-09-17 16:25 | PAIN ---
DATE OF SERVICE: 09/17/2019 INITIAL CONSULTATION FOR PAIN CLINIC CHIEF COMPLAINT: Low back and right lower extremity pain. HISTORY OF PRESENT ILLNESS: This is a 39-year-old female who presents with history of pain in the low back, right lower extremity since about May of this year. The patient had a stroke at that time and was rehabbed from that and is essentially without significant residual at this time by her report, with pain in the low back beginning at that time radiating to posterior gluteus, posterior thigh, posterior calf on the right side only. The patient reports it is constant, sharp and radiating, has a burning sensation in the back and the leg, worse with walking, standing, changing positions, getting up from seated position, does not affect her bowel or bladder control, but awakes her from sleep about every 3-4 hours at night. The patient reports it does affect her ability to walk fairly significantly with significant fatigability in the right lower extremity. No overt motor loss, but significant fatigue and weakness in the right leg with walking. The patient had done some physical therapy, more for her stroke rehabilitation than for the low back and the leg. The patient reports she is doing some stretching on her own and tries to walk daily as part of her rehabilitation program, it is becoming more difficult because of the fatigability and the pain in the right leg. The patient will stop and rest and then after about 5 minutes, she can proceed onward, but again after about 10-15 minutes, she has to sit and rest again. The patient rates her disability range from 0-10, 10 being the worst, is an 8 with family home responsibilities, 6 with recreation and social activity and sexual behavior, 10 with occupation, 7 with self-care and 4 with life support activities. The patient did have MRI scan of the lumbar spine showing significant degenerative changes, especially at L4 and L5-S1 with minimal disk osteophyte complex at L4-L5, more centered to the inferior left neural foramen with mild narrowing, also very mild narrowing of the right neural foramen, L5-S1 shows fairly severe facet degenerative change, minimal disk osteophyte complex, greater in the inferior neural foramen with moderate to severe narrowing of the right neural foramen and mild narrowing on the left. PAST MEDICAL HISTORY: Significant for hypothyroidism, neurocardiogenic syncope, asthma, arthritis, headaches, seizures, stroke 06/10/2019, epilepsy and frequent falls. PREVIOUS SURGERY: Include hysterectomy, pacemaker placement, x 2, left hand trigger finger release, fatty tumor around the hyoid excised in 2017. CURRENT MEDICATIONS: Include Depakote, Keppra, buspirone, clopidogrel, ____, Advair inhaler, levothyroxine and metoprolol. ALLERGIES: THE PATIENT IS ALLERGIC TO MORPHINE, DEMEROL, FENTANYL, AND PHENERGAN. FAMILY HISTORY: Significant for cancers, left ventricular hypertrophy, asthma, high blood pressure, depression and diabetes. SOCIAL HISTORY: The patient does not drink alcohol, does not smoke. Is not using illegal, illicit or recreational drugs. She is single, lives locally with her father in [place], [place]. REVIEW OF SYSTEMS: The patient's review of systems is positive for those items mentioned in history of present illness. All systems reviewed and otherwise negative. It is complete, full and well documented on the patient's chart. PHYSICAL EXAMINATION: VITAL SIGNS: The patient's blood pressure is 116/72, pulse 83, respirations 18, temperature 98.4 degrees Fahrenheit, height is 5 feet 2.5 inches, weight is 313 pound. GENERAL: The patient is awake, alert, oriented, appropriate, very pleasant demeanor. HEENT: Shows normocephalic, atraumatic. Extraocular movements are intact and symmetrical. Oral cavity: Mucous membranes moist and pink. Dentition is intact. NECK: Shows anterior throat supple without palpable lymphadenopathy noted. Swallow reflex symmetrical. CHEST: Shows normal on inspection. Breath sounds are clear bilaterally without any rales, rhonchi or wheezes auscultated. HEART: Shows S1, S2 clear. Patient has easily palpable pacemaker in the left subclavicular region, which is well healed but nontender. ABDOMEN: Obese, soft, nontender and nondistended. No palpable organomegaly is noted. No rebound or guarding demonstrated. BACK: Shows spine grossly in the midline, slightly exaggerated thoracic kyphosis and minor flattening of lumbar lordotic curvature. Lumbar paraspinous muscle shows symmetrical on inspection, on palpation shows some moderate tenderness diffusely bilaterally but only diffusely without significant radiation. The patient has good rotational motion of lumbar spine, both laterally as well as extension and flexion without significant difficulty. The patient shows no tenderness over the spinous processes, sacrum or sacroiliac regions. EXTREMITIES: Lower extremities show deep tendon reflexes at 1+ in the patellar and tendo calcaneus tendons are equal. Motor exam is approximately 4 on a scale of 5 with right dorsiflexion, extension, 5/5 on the left. Quadriceps and hamstring flexion likewise 4/5 with significant pain with quadriceps flexion on the right, radiating into the posterior gluteus and back, but not on the left, which is 5/5 and strong. Peripheral pulses are 1+ posterior tibia. No peripheral edema is noted bilaterally. Lower extremities are warm and dry to touch, equal in color and appearance. Straight leg raise noted to be positive on the right at about 35-40 degrees. Left side is negative. Gaenslen's and Azael's maneuvers are grossly negative bilaterally as well. The patient is able to stand, has difficulty trying to stand on her toes and walks with a slight favoring gait, does appear to favor the right lower extremity with ambulation, not using any assistive devices, however, such as canes or walkers to ambulate. SKIN: The patient's skin shows warm and dry, good turgor. No edema. No sores, rashes or bruising throughout. IMPRESSION: 1. This is a 39-year-old female with approximate 4-month history of pain in the low back, right lower extremity in a radicular fashion. 2. MRI scan of lumbar spine as noted. 3. Arthritis. 4. Recent stroke. 5. Anticoagulation therapy. PLAN: Options were discussed with the patient, including conservative medical managements, physical therapies and interventional techniques. She would like to pursue interventional techniques. We discussed a lumbar epidural steroid injection using description as well as anatomical models to describe the procedure. The patient will first wait for clearance from her prescribing physician regarding the Plavix and holding this for 7 days prior to potential injection. If deemed safe and appropriate, we will have her hold this and return for a lumbar epidural steroid injection at that time. In the meantime, the patient will continue with stretching and strengthening exercises, walking daily. Also, we will try Medrol Dosepak. The patient was given instruction as well as side effects to be aware of, also hydrocodone by her request, 20 tablets of 5 mg with instructions and side effects to be aware of as well for severe pain. The patient will follow up as scheduled pending approval for holding patient's Plavix for lumbar epidural steroid injection. WENDY GOLD MD DR: Ben JOB#: [id number] / [id number]
== END | disposition home or self-care (01) ==
LOC: PNCL 10:55
PROVIDERS: ATTEND Anesthesiology
DX: M54.5 Low back pain (principal); M79.661 Pain in right lower leg; E03.9 Hypothyroidism, unspecified; J45.909 Unspecified asthma, uncomplicated; M19.90 Unspecified osteoarthritis, unspecified site; Z98.890 Other specified postprocedural states; Z83.3 Family history of diabetes mellitus; Z83.6 Family history of other diseases of the respiratory system; Z82.49 Family history of ischemic heart disease and other diseases of the circulatory system; Z88.8 Allergy status to other drugs, medicaments and biological substances; Z79.899 Other long term (current) drug therapy; Z79.01 Long term (current) use of anticoagulants
CPT/HCPCS: G0463

== ENCOUNTER → 2019-10-06 | Outpatient (CLI) | payer OTHER ==
[2019-08-11 16:20] VITALS: BP 96/54
[~2019-10-06] MED LIST changes: +IOHEXOL 180 MG/ML 10 ML VIAL. ONE; +methylPREDNISolone ACETATE 40 MG/ML VIAL. ONE; +methylPREDNISolone ACETATE 80 MG/ML VIAL. ONE
--- NOTE | 2019-10-06 11:37 | PDOC ---
Progress Note - Pain Clinic Date of Service: DOS: DATE: 10/06/19 TIME: 11:33 Diagnosis: Dx: Lumbar radiculopathy with lumbar degenerative disc disease History or Present Illness: HPI: 39-year-old female returns for follow-up status post initial evaluation and clearance to be off of Plavix for 7 days patient is obtained this clearance now and has been off medication after 7 days. Patient reports still significant pain in the low back and the right lower extremity as previous. Patient reports no new motor or sensory deficits no new bowel or bladder incontinence. Patient ports the pain is in the low back right lower extremity posterior gluteus post erior thigh posterior calf and posterior and lateral calf patient rates as a 10 on a scale of 10 is worst over the past week 7 on average 4 to least and is a 7 today. Patient scribes a tingling burning sharp shooting radiating constant can be severe at times as well worse with walking standing changing positions. Better with sitting lying down but has been waking her from sleep about every 2- 3 hours. Physical Exam: VS: Blood pressure is 133/96 pulse 87 respirations 20 temperature 98.0 F weight is 3 1 8 pounds PE: PHYSICAL EXAMINATION: GENERAL: The patient is awake, alert, oriented, appropriate, very pleasant demeanor HEENT: Shows normocephalic, atraumatic. Extraocular movements are intact and symmetrical. Oral cavity: Mucous membranes moist and pink. Dentition is intact. NECK: Shows anterior throat supple without palpable lymphadenopathy noted. Swallow reflex symmetrical. CHEST: Shows normal on inspection. Breath sounds are clear bilaterally no rales rhonchi or wheezes auscultated. HEART: Shows S1, S2 clear. No murmurs auscultated. ABDOMEN: Soft, nontender, nondistended, obese. No palpable organomegaly is noted. No rebound or guarding demonstrated. BACK: Shows spine grossly in the midline. Normal-appearing cervical lordotic curvature. There is slightly increased thoracic kyphosis, some minor flattening of the lumbar lordotic curvature. Lumbar paraspinous muscles show symmetrical on inspection, on palpation shows some moderate tenderness diffusely throughout the upper, middle and lower distribution of the paraspinous muscles bilaterally without specific trigger points, without radiation of pain. The patient has good rotational motion of the lumbar spine, both laterally as well as extension and flexion without significant difficulty. No tenderness over the spinous processes, sacrum or sacroiliac regions. EXTREMITIES: Lower extremities show deep tendon reflexes 1+ in the patellar and tendo calcaneus tendons. Motor exam is [] on a scale of 5 with right dorsiflexion, extension, quadriceps and hamstring flexion and 5/5 on the left. Peripheral pulses are 1+ posterior tibial. No peripheral edema is noted bilaterally. Lower extremities are warm and dry to touch, equal in color and appearance. SKIN: Shows warm and dry, good turgor. No edema. No sores, rashes or bruising throughout. Procedure: Procedure: Options were discussed with the patient. Patient's old chart was reviewed as her current medication regimen updated current review of systems updated today as well. We will proceed with a lumbar epidural steroid injection stable fluoroscopic guidance risk again discussed including but not limited to bleeding infection possibility of epidural hematoma subsequent neurological compromise dural puncture headache spinal cord and or nerve damage side effects of steroid medication/guarding pain control. Patient understands wished to proceed. Patient return to clinic in approximately 2 weeks for follow-up was counseled as to return appointment activity level and side effects be aware of. Medication Injected: Med Injected: Procedure is lumbar epidural steroid injection under local anesthetic using sterile prep and drape at the L5-S1 level using C-arm fluoroscopic guidance in both AP and lateral views medications injected is 120 mg Depo-Medrol +[]mL preservative-free normal saline and 2 mL contrast- condition at discharge is stable patient tolerated procedure well had no complications. Condition at Discharge: Condition at Discharge: Condition at discharge is stable patient tolerated procedure well had no complications. WENDY GOLD MD Oct 06, 2019 11:37
== END | disposition home or self-care (01) ==
LOC: PNCL 10:20
PROVIDERS: ATTEND Anesthesiology
DX: M51.16 Intervertebral disc disorders with radiculopathy, lumbar region (principal); E03.9 Hypothyroidism, unspecified; Z98.890 Other specified postprocedural states; Z79.899 Other long term (current) drug therapy; Z88.8 Allergy status to other drugs, medicaments and biological substances
CPT/HCPCS: 62323; J1030; J1040; Q9965

== ENCOUNTER → 2019-11-24 | Outpatient (CLI) | payer MEDICAID ==
[2019-08-11 16:20] VITALS: BP 96/54
[~2019-11-24] MED LIST changes: -IOHEXOL 180 MG/ML 10 ML VIAL. ONE; -methylPREDNISolone ACETATE 40 MG/ML VIAL. ONE; -methylPREDNISolone ACETATE 80 MG/ML VIAL. ONE
[2019-11-24 15:34] LABS: BASO % 1 % (0-3); EOS # 0.2 x10^3/uL (0.0-0.7); EOS % 2 % (0-3); HEMATOCRIT 36.9 % (36.0-47.0); HEMOGLOBIN 12.8 g/dL (12.0-15.5); LYMPH # 3.2 x10^3/uL (1.0-4.8); LYMPH % 36 % (24-48); MEAN CORPUSCULAR HEMOGLOBIN 31 pg (25-35); MEAN CORPUSCULAR HGB CONC 35 g/dL (31-37); MEAN CORPUSCULAR VOLUME 90 fL (79-100); MONO # 0.7 x10^3/uL (0.0-1.1); MONO % 7 % (0-9); NEUT % 55 % (31-73); PLATELET COUNT 235 x10^3/uL (140-400); RED BLOOD COUNT 4.11 x10^6/uL (3.50-5.40); RED CELL DISTRIBUTION WIDTH 13.9 % (11.5-14.5); WHITE BLOOD COUNT 9.2 x10^3/uL (4.0-11.0)
[2019-11-24 16:16] LABS: CALCIUM 8.9 mg/dL (8.5-10.1); CREATININE 1.1 mg/dL (0.6-1.0); GFR 55.3; POTASSIUM 3.6 mmol/L (3.5-5.1)
== END ==
LOC: LAB 13:58
PROVIDERS: ATTEND Internal Medicine Cardiovascular Disease
DX: R60.0 Localized edema (principal)
CPT/HCPCS: 36415; 80048; 83880; 84443; 85025

== ENCOUNTER 2020-08-20 14:23 | Emergency (ER) | payer OTHER, MEDICAID ==
[~2020-08-20] VITALS: Ht 158.8 cm; Wt 148.0 kg
[2020-08-20] MEDS ORDERED: IV NORMAL SALINE 1000ML BAG 1,000 ML IV ONE (15:30)
--- NOTE | 2020-08-20 15:48 | RAD ---
4 view right shoulder, two-view right forearm and 3 view right hand dated 08/20/2020. No comparison available. Clinical data indication: Pain after fall. FINDINGS: Three-view right shoulder show normal bony alignment. No displaced fracture. No acute osseous or luis cular abnormality. Mild hypertrophic change of the AC joint. 2 views of the right forearm show normal bony alignment. No displaced fracture. No periostitis or bon e destruction. 3 views the right hand show normal bony alignment. No displaced fracture. No periostitis or bone dest ruction. No acute osseous or articular abnormality. IMPRESSION: No acute findings. Electronically signed by: Vasu Rojas MD (08/20/2020 3:45 PM) [id number]
--- NOTE | 2020-08-20 15:59 | RAD ---
CT HEAD AND C-SPINE WO dated 08/20/2020 3:33 PM. Comparison: None. Clinical Indication: Reason: syncope, fall / Spl. Instructions: / History: , HEAD AND NECK PAIN Technical factors: Contiguous 5 mm axial images of the head were obtained from the skullbase to the v ertex. No contrast was administered. In addition, 3 mm axial images of the cervical spine were acquir ed with thin cut coronal and sagittal reconstructions. One or more of the following individualized dose reduction techniques were utilized for this examinat ion: 1. Automated exposure control 2. Adjustment of the mA and/or kV according to patient size 3. Use of iterative reconstruction technique Findings head: Ventricles and sulci are within normal limits for age. No midline shift or mass effect. Brain parench yma is of normal attenuation. No hemorrhage or extra-axial collection. Posterior fossa and brainstem unremarkable. Visualized paranasal sinuses and mastoid air cells are clear. No apparent calvarial abnormality. IMPRESSION HEAD: No evidence of acute intracranial abnormality. Findings cervical spine: Images were acquired from the skull base to T2. There is straightening of the normal cervical lordosi s, otherwise sagittal alignment is anatomic. Vertebral body heights are maintained. No prevertebral s oft tissue swelling. Posterior elements are intact. No fractures are identified. There is mild multilevel uncovertebral hypertrophy with mild multilevel facet arthropathy. No apparen t focal disc herniation. The bony canal and foramina are adequate. Visualized soft tissue structures are unremarkable. There are borderline enlarged bilateral cervical chain lymph nodes, nonspecific. Limited images of lung apices are clear. IMPRESSION CERVICAL SPINE: No evidence of fracture or malalignment. Electronically signed by: Vasu Rojas MD (08/20/2020 3:56 PM) [id number]
--- NOTE | 2020-08-20 16:02 | RAD ---
CT thoracic spine without contrast dated 08/20/2020. No comparison available. CLINICAL INDICATION: Pain after fall. Syncope. TECHNIQUE: Contiguous axial imaging of the thoracic spine performed with thin cut coronal and sagittal reconstru ction. One or more of the following individualized dose reduction techniques were utilized for this examinat ion: 1. Automated exposure control 2. Adjustment of the mA and/or kV according to patient size 3. Use of iterative reconstruction technique. FINDINGS: Sagittal alignment is anatomic. Vertebral body heights are maintained. Posterior elements are intact. No evidence of fracture. Mild endplate hypertrophic changes throughout with mild multilevel disc space narrowing. Mild multile jose guadalupe facet arthropathy. No apparent focal disc herniation. Bony canal and foramina appear adequate. Visualized soft tissue structures unremarkable. Imaged portions the pulmonary parenchyma are unremark able. There is some minimal patchy groundglass opacity in the medial aspect of the left lower lobe, n onspecific. No apparent rib fracture. IMPRESSION: 1. No evidence of fracture or malalignment. 2. Minimal patchy left basilar opacity, likely atelectasis. 3. Mild multilevel spondylosis. Electronically signed by: Vasu Rojas MD (08/20/2020 3:59 PM) [id number]
--- NOTE | 2020-08-20 16:07 | RAD ---
EXAM: CT lumbar spine without contrast INDICATION: Syncope, fall COMPARISON: None TECHNIQUE: Axial CT imaging through lumbar spine without intravenous contrast. Sagittal and coronal r eformats were obtained. One or more of the following individualized dose reduction techniques were utilized for this examinat ion: 1. Automated exposure control 2. Adjustment of the mA and/or kV according to patient size 3. Use of iterative reconstruction technique. FINDINGS: There 5 nonrib-bearing lumbar vertebral bodies. No acute fracture. Alignment is normal. Disc spaces a re maintained. There is moderate facet arthrosis at L4-L5 resulting in mild bilateral foraminal narro wing. There is severe right and moderate left facet arthrosis at L5-S1 resulting in at least moderate bilateral foraminal narrowing, greater on the right. The visualized portion of the retroperitoneum is unremarkable. Paraspinous musculature is normal. IMPRESSION: 1. No acute osseous abnormality of the lumbar spine. 2. Advanced facet arthrosis at L4-L5 and L5-S1 contributing to at least moderate foraminal narrowing at L5-S1, greater on the right. Electronically signed by: Nataliya Rivera MD (08/20/2020 4:05 PM) [id number]
[2020-08-20 16:14] LABS: BASO # 0.1 x10^3/uL (0.0-0.2); BASO % 1 % (0-3); EOS # 0.2 x10^3/uL (0.0-0.7); EOS % 3 % (0-3); HEMATOCRIT 38.1 % (36.0-47.0); HEMOGLOBIN 12.9 g/dL (12.0-15.5); LYMPH # 2.8 x10^3/uL (1.0-4.8); LYMPH % 36 % (24-48); MEAN CORPUSCULAR HEMOGLOBIN 31 pg (25-35); MEAN CORPUSCULAR HGB CONC 34 g/dL (31-37); MEAN CORPUSCULAR VOLUME 92 fL (79-100); MONO # 0.6 x10^3/uL (0.0-1.1); MONO % 8 % (0-9); NEUT # 4.2 x10^3/uL (1.8-7.7); NEUT % 53 % (31-73); PLATELET COUNT 287 x10^3/uL (140-400); RED BLOOD COUNT 4.13 x10^6/uL (3.50-5.40); RED CELL DISTRIBUTION WIDTH 13.8 % (11.5-14.5)
[2020-08-20 16:23] LABS: CALCIUM 8.6 mg/dL (8.5-10.1); GFR 61.4
[2020-08-20 16:26] LABS: BILIRUBIN,URINE SMALL (NEG); CLARITY,URINE CLEAR; COLOR,URINE YELLOW; NITRITE,URINE NEGATIVE (NEG); PROTEIN,URINE NEGATIVE (NEG-TRACE)
[2020-08-20 16:30] VITALS: BP 137/82
[2020-08-20 16:30] LABS: ALBUMIN 3.2 g/dL (3.4-5.0); ALBUMIN/GLOBULIN RATIO 0.8 (1.0-1.7); TOTAL BILIRUBIN 0.3 mg/dL (0.2-1.0); TOTAL PROTEIN 7.4 g/dL (6.4-8.2)
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
[2020-08-20 16:31] LABS: BACTERIA,URINE FEW /HPF (0-FEW)
[2020-08-20 16:32] LABS: BARBITURATES NEG (NEG); BENZODIAZEPINES NEG (NEG); CANNABINOIDS NEG (NEG); COCAINE NEG (NEG); METHADONE NEG (NEG); OPIATES NEG (NEG); PHENCYCLIDINE NEG (NEG); RBC,URINE 0 /HPF (0-2); WBC,URINE OCC /HPF (0-4)
[2020-08-20 16:33] LABS: AMPHETAMINE/METHAMPHETAMINE NEG (NEG)
[2020-08-20] MEDS ORDERED: CYCL10TA2 PO ×2 (16:57→17:11)
--- NOTE | 2020-08-20 17:41 | EKG ---
[facility] [address] [place] [address] Test Date: 2020-08-20 Test Time: 16:22:28 Pat Name: ROBIN VARGAS Department: Room: Gender: F Fur Finisher: : 1980 Requested By: BREEZY BARRAZA Order Number: [id number] Reading MD: Raman Casey Measurements Intervals [place] Rate: 80 P: 59 SC: 178 QRS: 17 QRSD: 80 T: 10 QT: 376 QTc: 437 Interpretive Statements SINUS RHYTHM NORMAL ECG Electronically Signed On 08-23-2020 12:03:47 CDT by Raman Casey
== END 2020-08-20 17:20 | disposition home or self-care (01) ==
LOC: ER 14:23
DX: S63.91XA Sprain of unspecified part of right wrist and hand, initial encounter (principal); S40.011A Contusion of right shoulder, initial encounter; S50.11XA Contusion of right forearm, initial encounter; M54.5 Low back pain; R51.9 Headache, unspecified; M54.6 Pain in thoracic spine; I10 Essential (primary) hypertension; J45.909 Unspecified asthma, uncomplicated; Z95.0 Presence of cardiac pacemaker; Z86.73 Personal history of transient ischemic attack (TIA), and cerebral infarction without residual deficits; E66.01 Morbid (severe) obesity due to excess calories; Z68.43 Body mass index [BMI] 50.0-59.9, adult; Z88.1 Allergy status to other antibiotic agents; Z88.4 Allergy status to anesthetic agent; Z88.5 Allergy status to narcotic agent; Z91.018 Allergy to other foods; V29.49XA Motorcycle driver injured in collision with other motor vehicles in traffic accident, initial encounter; Y93.89 Activity, other specified; Y92.488 Other paved roadways as the place of occurrence of the external cause; Y99.8 Other external cause status
CPT/HCPCS: 36415; 70450; 72125; 72128; 72131; 73030; 73090; 73130; 80053; 80307; 81001; 82553; 84484; 85025; 93005; 99285-25

== ENCOUNTER → 2020-10-24 | Outpatient (CLI) | payer MEDICAID ==
[~2020-10-24] MED LIST changes: +CYCL10TA2 PO; +IOHEXOL 180 MG/ML 10 ML VIAL. ONE; +methylPREDNISolone ACETATE 80 MG/ML VIAL. ONE
--- NOTE | 2020-10-24 10:42 | PDOC ---
Progress Note - Pain Clinic Date of Service: DOS: DATE: 10/24/20 TIME: 10:39 Diagnosis: Dx: Lumbar radiculopathy with lumbar degenerative disc disease History or Present Illness: HPI: 40-year-old female returns for follow-up after holding Plavix and has been off this for 9 days now complains of pain low back and into the right lower extremity posterior gluteus posterior thigh posterior calf worse with walking standing changing positions better with sitting or lying down patient reports a 9 on scale 10 is worse over the past week 5 on average 3 its least is a 5 today patient reports burning and stabbing can be constant and severe in the low back and right leg aching sharp and tight also patient reports new finding of pain in the mid upper back as well on the right side which is new was not there on her last visit patient reports is becoming more spastic in that area again more notable with walking and with sitting. Patient reports that is the part that sometimes awakens her from sleep about once every 5 hours or so. Patient reports no bowel or bladder incontinence no motor deficits. Physical Exam: VS: Blood pressure is 106/95 pulse 98 respirations 18 temperature 90.7 F height 5 feet 3 inches weight is 344 pounds PE: PHYSICAL EXAMINATION: GENERAL: The patient is awake, alert, oriented, appropriate, very pleasant in demeanor HEENT: Shows normocephalic, atraumatic. Extraocular movements are intact and symmetrical. Oral cavity: Mucous membranes moist and pink. NECK: Shows anterior throat supple without palpable lymphadenopathy noted. Swallow reflex symmetrical. CHEST: Shows normal on inspection. Breath sounds are clear bilaterally, distant but no rales or rhonchi. HEART: Shows S1, S2 clear. No murmurs auscultated. ABDOMEN: Soft, nontender, nondistended, obese. No palpable organomegaly is noted. BACK: Shows spine grossly in the midline. Normal-appearing cervical lordotic curvature. There is slightly increased thoracic kyphosis, some minor flattening of the lumbar lordotic curvature. Lumbar paraspinous muscles show symmetrical on inspection, on palpation shows some moderate tenderness diffusely throughout the upper, middle and lower distribution of the paraspinous muscles without specific trigger points, without radiation of pain. The patient has good rotational motion of the lumbar spine, both laterally as well as extension and flexion without significant difficulty. EXTREMITIES: Lower extremities show deep tendon reflexes 1+ in the patellar and tendo calcaneus tendons. Motor exam is full on a scale of 5 with right dorsiflexion, extension, quadriceps and hamstring flexion and 5/5 on the left. Peripheral pulses are 1+ posterior tibial. No peripheral edema is noted bilaterally. Lower extremities are warm and dry to touch, equal in color and appearance. SKIN: Shows warm and dry, good turgor. No edema. No sores, rashes or bruising throughout. Procedure: Procedure: Options discussed with the patient. Patient chart was reviewed as her current medication regimen updated current review of systems updated today as well. We will proceed with a lumbar epidural steroid injection today with fluoroscopic guidance. Risks were discussed including but not limited to: Bleeding, infection, possibility of epidural hematoma and subsequent neurological compromise, dural puncture, headaches, spinal cord and/or nerve damage, side effects of steroid medication, and poor results regarding pain control. Patient understands and wished to proceed. She will return to the clinic in approximate 2 weeks for follow-up, was counseled as to return appointment, activity level, and side effects beware of. Medication Injected: Med Injected: Procedure is lumbar epidural steroid injection under local anesthetic using sterile prep and drape at the L5-S1 level using C-arm fluoroscopic guidance in both AP and lateral views medications injected is 120 mg Depo-Medrol +10mL preservative-free normal saline and 2 mL contrast- condition at discharge is stable patient tolerated procedure well had no complications. Condition at Discharge: Condition at Discharge: Condition at discharge is stable, patient tolerated the procedure well and had no complications. WENDY GOLD MD Oct 24, 2020 10:42
--- NOTE | 2020-10-24 10:42 | PDOC4 ---
Procedure Note: ICD 10 Code: ICD 10 Code: M54.17 M51.87 Procedure Note: Patient was consented for lumbar epidural steroid injection with fluoroscopic guidance. Risks were discussed including but not limited to: Bleeding, infection, possibility of epidural hematoma and subsequent neurological compromise, dural puncture, headaches, spinal cord and/or nerve damage, side effects of steroid medication, and poor results regarding pain control. Patient understands and wished to proceed. Procedure is lumbar epidural steroid injection under local anesthetic using sterile prep and drape at the L5-S1 level using C-arm fluoroscopic guidance in both AP and lateral views medications injected is 120 mg Depo-Medrol +10mL preservative-free normal saline and 2 mL contrast- condition at discharge is stable patient tolerated procedure well had no complications. WENDY GOLD MD Oct 24, 2020 10:42
== END | disposition home or self-care (01) ==
LOC: PNCL 09:03
PROVIDERS: ATTEND Anesthesiology
DX: M51.16 Intervertebral disc disorders with radiculopathy, lumbar region (principal); J45.909 Unspecified asthma, uncomplicated; E66.9 Obesity, unspecified; E03.9 Hypothyroidism, unspecified; M19.90 Unspecified osteoarthritis, unspecified site; F41.9 Anxiety disorder, unspecified; F32.9 Major depressive disorder, single episode, unspecified; Z79.899 Other long term (current) drug therapy; Z98.890 Other specified postprocedural states; Z88.6 Allergy status to analgesic agent; Z88.8 Allergy status to other drugs, medicaments and biological substances; Z72.89 Other problems related to lifestyle; Z82.49 Family history of ischemic heart disease and other diseases of the circulatory system
CPT/HCPCS: 62323; J1040; Q9965

== ENCOUNTER → 2020-12-25 | Outpatient (CLI) | payer OTHER, MEDICAID ==
[~2020-12-25] MED LIST changes: +CYCL10TA19 PO; -CYCL10TA2 PO; -IOHEXOL 180 MG/ML 10 ML VIAL. ONE; -methylPREDNISolone ACETATE 80 MG/ML VIAL. ONE
--- NOTE | 2020-12-25 13:03 | CARD ---
MR#: [id number] Date of Study: 12/25/2020 Ordering Physician: LAKIA CHANG, Referring Physician: LAKIA CHANG, Tech: Shannon Dueñaseleazaranne [facility] APPROVED REPORT EXAM: Two-dimensional and M-mode echocardiogram with Doppler and color Doppler. INDICATION Syncope Surgery/Intervention Pacemaker: Date: 2016 RISK FACTORS Hypertension Hyperlipidemia Asthma 2D DIMENSIONS Left Atrium(2D)3.4 (1.6-4.0cm)IVSd1.5 (0.7-1.1cm) Aortic Root(2D)3.1 (2.0-3.7cm)LVDd5.0 (3.9-5.9cm) LVOT Diameter2.0 (1.8-2.4cm)PWd1.3 (0.7-1.1cm) LVDs3.6 (2.5-4.0cm)FS (%) 27.1 % SV61.0 ml Aortic Valve AoV Peak Jayson.158.7cm/sAoV VTI31.7cm AO Peak GR.10.1mmHgLVOT Peak Jayson.105.6cm/s AO Mean GR.6mmHgAVA (VMAX)2.14cm2 Mitral Valve MV E Vatitmoa04.1cm/sMV E Peak Gr.3mmHg MV DECEL [id number] A Cfrreake25.2cm/s MV E Mean Gr.1mmHgE/A Ratio1.1 Pulmonary Valve PV Peak Dpbkrncs99.3cm/s Tricuspid Valve TR P. [id number]/sRAP DWWKRKDT2mdQu TR Peak Gr.12keKxRPKG50btEp Pulmonary Vein S1 Cxzabiuo22.1cm/sD2 Aipfsjia68.8cm/s PVa [id number] LEFT VENTRICLE The left ventricle is normal size. There is mild concentric left ventricular hypertrophy. The left ve ntricular systolic function is normal and the ejection fraction is within normal range. LV ejection f raction is 50 to 55%. There is normal LV segmental wall motion. Transmitral Doppler flow pattern is G rade II-pseudonormal filling dynamics. RIGHT VENTRICLE The right ventricle is normal size. There is normal right ventricular wall thickness. The right ventr icular systolic function is normal. ATRIA The left atrium size is normal. The right atrium size is normal. The interatrial septum is intact wit h no evidence for an atrial septal defect or patent foramen ovale as noted on 2-D or Doppler imaging. AORTIC VALVE The aortic valve is normal in structure and function. Doppler and Color Flow revealed no significant aortic regurgitation. There is no significant aortic valvular stenosis. Calculated aortic valve area is 2.1 cm2 with maximum pressure gradient of 10 mmHg and mean pressure gradient of 6 mmHg. MITRAL VALVE The mitral valve is normal in structure and function. There is no evidence of mitral valve prolapse. There is no mitral valve stenosis. Doppler and Color Flow revealed no mitral valve regurgitation note d. TRICUSPID VALVE The tricuspid valve is normal in structure and function. Doppler and Color Flow revealed trace tricus pid regurgitation. There is no tricuspid valve stenosis. PULMONIC VALVE The pulmonic valve is not well visualized. Doppler and Color Flow revealed trace pulmonic valvular re gurgitation. GREAT VESSELS The aortic root is normal in size. The IVC was not visualized. PERICARDIAL EFFUSION There is no evidence of significant pericardial effusion. Critical Notification Critical Value: No <Conclusion> The left ventricle is normal size. The left ventricular systolic function is normal and the ejection fraction is within normal range. LV ejection fraction is 50 to 55%. There is mild concentric left ventricular hypertrophy. Doppler and Color Flow revealed no significant aortic regurgitation. There is no significant aortic valvular stenosis. Doppler and Color Flow revealed no mitral valve regurgitation noted. Doppler and Color Flow revealed trace tricuspid regurgitation. Signed by : Omar King MD Electronically Approved : 12/25/2020 13:02:56
== END ==
LOC: ECHO 10:04
PROVIDERS: ATTEND Internal Medicine Cardiovascular Disease
DX: I51.7 Cardiomegaly (principal); R55 Syncope and collapse
CPT/HCPCS: 93306

== ENCOUNTER → 2021-06-14 | Outpatient (CLI) | payer OTHER, MEDICAID ==
[~2021-06-14] MED LIST changes: -TRAM1TAB56 PO; +TRAM1TAB57 PO
--- NOTE | 2021-06-14 08:19 | RAD ---
INDICATION: Reason: ELEVATED LFT'S / Spl. Instructions: / History: COMPARISON: None. TECHNIQUE: Grayscale and color ultrasound images obtained through the abdomen. FINDINGS: Pancreas: Largely obscured by overlying structures. Liver: Echogenic appearance. Large portions not well seen secondary to overlying structures obscuring . Gallbladder: No definite stones or wall thickening. Common Bile Duct: Not dilated. Right Kidney: Pelvocaliectasis Left Kidney: No hydronephrosis. Spleen: 14 cm, prominent in size. Aorta/IVC: Largely obscured IMPRESSION: * Liver is echogenic which can be seen with fatty infiltration. Large portions the liver not well se en secondary to poor beam penetration. * No common bile duct dilation. Electronically signed by: Jasvir Gibson MD (06/14/2021 8:17 AM) [id number]
== END ==
LOC: US 06:53
PROVIDERS: ATTEND Family Medicine
DX: R94.5 Abnormal results of liver function studies (principal)
CPT/HCPCS: 76700